=== PATIENT | male | born 1945 | race Caucasian/White ===

== ENCOUNTER 2016-05-27 15:57 | Inpatient (IN) | payer MEDICARE ==
--- NOTE | ~2016-05-27 | HP ---
Unit #: [id number] #: [id number] Patient: DOROTHY HERNANDEZ [id number] [address] [place], [place] [address] [id number] I MR#: [id number] NAME: DOROTHY HERNANDEZ. ROOM: 22595 Age: 70 Sex: M Admission Date: 05/27/2016 : 1945 Attending Physician: Isidoro Manjarrez M.D. Primary Care Physician: Selvin Sarabia Jr., M.D. HISTORY AND PHYSICAL CHIEF COMPLAINT 1. Shortness of breath. 2. Anemia. 3. Chest pain. HISTORY OF PRESENT ILLNESS Patient is a 70-year-old male with a history of coronary artery disease and renal insufficiency, who follows up with Dr. Manjarrez and Dr. Curran, who does also have hypertension and diabetes, who presents with shortness of breath, weakness, and bilateral leg swelling. He states that it is improved with taking nitroglycerin 0.4 x1. He states that this felt like when he had his myocardial infarction. He was seen and evaluated in the emergency room and his hemoglobin was 6.5. He currently has two units of packed red blood cells ordered with 80 mg of Lasix IV in between units x1 and iron studies ordered per Dr. Esteban Curran. Patient's troponin is elevated at 0.30; however, his creatinine is also elevated. He denies any chest pain at this time, denies any melena, hematochezia, hemoptysis, or hematemesis, and denies any lightheadedness or blurry vision at this time. REVIEW OF SYSTEMS A complete 10-point review of systems has been done and pertinent positives are noted. PAST MEDICAL HISTORY 1. Diabetes mellitus type 2. 2. Hypertension. 3. Chronic kidney disease managed by Dr. Esteban Curran. 4. Coronary artery disease. 5. Hyperlipidemia. 6. Benign prostatic hypertrophy. 7. Gout. PAST SURGICAL HISTORY 1. Colonoscopy which was normal in April 2005. 2. Cataract surgery. 3. Right third finger surgery. 4. Right Achilles tendon repair. SOCIAL HISTORY Patient lives with his . Denies any tobacco use, alcohol use, or illicit drug use at this time. FAMILY HISTORY Mother with COPD and his dad had lung cancer. Unit #: [id number] #: [id number] Patient: DOROTHY HERNANDEZ MEDICATIONS 1. Demadex 20 mg p.o. twice daily. 2. Lotensin 20 mg p.o. daily. 3. Cardura 80 mg p.o. every evening. 4. Zetia 10 mg at bedtime. 5. Lipitor 40 mg at bedtime. 6. Glucotrol 5 mg p.o. twice daily, 1-1/2 tablets in the a.m. and 2 tablets p.m. which is 7.5 mg in the a.m. and 10 mg at p.m. 7. Hydralazine 100 mg p.o. 3 times daily. 8. Aspirin 81 mg p.o. daily. 9. Brilinta 90 mg p.o. twice daily. 10. Isosorbide dinitrate 30 mg p.o. daily. 11. Nitroglycerin 0.4 mg sublingual q.5 minutes x3 p.r.n. 12. Calcium with vitamin D 1 tablet p.o. daily. 13. Zyloprim 100 mg p.o. twice daily. 14. Amlodipine 5 mg p.o. daily. 15. Minoxidil 2.5 mg p.o. twice daily. ALLERGIES No known drug allergies. PHYSICAL EXAMINATION GENERAL: He was comfortable and not in acute distress. VITAL SIGNS: Blood pressure was 128/55, pulse 81, respiratory rate 18, and temperature 98. Patient is saturating 95% on 2 liters of oxygen. HEENT: Pupils were equal and reactive to light and accommodation. NECK: Supple without thyromegaly. CARDIOVASCULAR: First and second heart sounds. ABDOMEN: Full. Moved with respiration. Soft. EXTREMITIES: With 2+ bilateral lower extremity edema. SKIN: Warm and dry with no rashes. LYMPHATICS: No enlarged peripheral lymphadenopathy that I could appreciate. DIAGNOSTIC STUDIES LABORATORY: Chemistries with glucose of 296, BUN and creatinine 60 and 3.1, sodium and potassium 132 and 3.9, and chloride and bicarbonate 102 and 21, respectively. BNP was 1741. Troponin was 0.30 and 0.29, respectively. CBC with WBC of 6.7, hemoglobin and hematocrit 6.8 and 28.4, and platelet count of 140,000. CARDIOLOGY: EKG showed normal sinus rhythm with low voltage QRS with incomplete left bundle branch block. ASSESSMENT 1. Symptomatic anemia. Patient is currently being transfused two units of packed red blood cells. 2. Chronic renal failure. Dr. Esteban Curran has been consulted. 3. Coronary artery disease with elevated troponins. Dr. Manjarrez has been consulted. PLAN Will check a CBC and BMP in the morning. Will put him on Accu-Cheks q.a.c. and at bedtime and low-dose sliding scale. For DVT prophylaxis, will put him on SCDs while he is in bed, and for GI prophylaxis, will put him on Protonix. Unit #: [id number] #: [id number] Patient: DOROTHY HERNANDEZ Dictated by Radha Mejia/sole TD: 05/27/2016 18:47 JOB #: [id number] HISTORY AND PHYSICAL Page 1 of 1 X Yenny Viera MD X HISTORY AND PHYSICAL
--- NOTE | ~2016-05-27 | CO ---
Unit #: [id number] #: [id number] Patient: DOROTHY HERNANDEZ [id number] [address] [place], [place] [address] [id number] I MR#: [id number] NAME: DOROTHY HERNANDEZ. ROOM: 549 Age: 70 Sex: M Admission Date: 05/27/2016 : 1945 Attending Physician: Orestes Bejarano M.D. Primary Care Physician: Selvin Sarabia Jr., M.D. Consultation Date: 05/28/2016 CONSULTATION REPORT REASON FOR CONSULTATION Coronary artery disease and CHF. HISTORY OF PRESENT ILLNESS The patient is a 70-year-old man known to Dr. Manjarrez. The patient was last seen in the office in April of 2016. The patient had a cardiac cath on June 25, 2015, which showed left main 40% stenosis distally before the bifurcate, LAD proximally 80% stenosis, reduced to 0% residual stenosis with a 3.5 x 20 mm Synergy stent postdilated to 3.6 mm, first diagonal 90% stenosis at the origin and 90% stenosis 15 mm beyond, third diagonal 90% stenosis at the origin, left circumflex no significant stenosis and RCA mid 99% stenosis with distal being normal. The patient has had a non-STEMI, coronary artery disease, hypertensive cardiomyopathy, hyperlipidemia. He is followed by Dr. Esteban Curran for chronic kidney disease stage 4. Additional past medical history includes BPH, diabetes, carotid bruit, diastolic CHF and anemia of chronic disease. The patient presented to the ER with complaints of cold sweats and increasing shortness of breath. The onset of his shortness of breath was approximately a few hours before arriving to the emergency department. He did have some complaints of lightheadedness but did not pass out or feel like he could pass out. He denied any chest pain or pressure. The patient does report that he did take a nitroglycerin at home and that it did help some of his shortness of air. The patient reports that he has been compliant with his Brilinta and aspirin for the past year. In the emergency department the patient's hemoglobin was found to be 6.8. The patient denies any hematemesis, hematochezia or hematuria. The patient was given 2 units of packed red blood cells with 80 mg of Lasix in between. The patient's ejbqj-ft-ogip troponin was 0.29 with an elevated creatinine of 3.1. His EKG was unremarkable and showed sinus rhythm. The patient was admitted for further workup. PAST MEDICAL HISTORY 1. Cardiac catheterization June 25, 2015 showed left main 40% stenosis distally before bifurcation, LAD proximally 80% stenosis, reduced to no residual stenosis by a 3.5 x 20 mm Synergy stent postdilated to 3.6 mm, first diagonal 90% stenosis at the origin and 90% stenosis 15 mm beyond, third diagonal 90% stenosis at the origin, left circumflex no significant stenosis and RCA mid 99% stenosis with distal being normal. 2. Non-STEMI. 3. Coronary artery disease. 4. Hypertensive cardiomyopathy. Unit #: [id number] #: [id number] Patient: DOROTHY HERNANDEZ 5. Hyperlipidemia. 6. Chronic kidney disease stage 4, followed by Dr. Curran. 7. Diabetes, followed by Dr. Kong. 8. BPH. 9. Carotid bruit. 10. Diastolic CHF. 11. Anemia of chronic disease. PAST SURGICAL HISTORY 1. Colonoscopy, which was normal, in April of 2005. 2. Cataract surgery. 3. Third finger surgery. 4. Right Achilles tendon repair. ALLERGIES No known allergies. HOME MEDICATIONS 1. Demadex 20 mg p.o. daily. 2. Lotensin 20 mg p.o. daily. 3. Cardura 80 mg p.o. in the evening. 4. Zetia 10 mg p.o. at bedtime. 5. Lipitor 10 mg p.o. at bedtime. 6. Glucotrol 5 mg p.o. b.i.d., 1.5 tabs in the a.m. and 2 tablets in the evening. 7. Hydralazine 100 mg p.o. t.i.d. 8. Aspirin 81 mg p.o. daily. 9. Brilinta 90 mg p.o. b.i.d. 10. Isosorbide dinitrate 30 mg p.o. daily. 11. Nitroglycerin sublingual 0.4 mg q.5 minutes x3 p.r.n. 12. Calcium with vitamin D. 13. Zyloprim 100 mg p.o. b.i.d. 14. Amlodipine 5 mg p.o. daily. 15. Minoxidil 2.5 mg p.o. b.i.d. FAMILY HISTORY The patient denies any family history of coronary artery disease. SOCIAL HISTORY The patient denies tobacco, alcohol or illicit drug abuse. The patient states that he quit drinking alcohol altogether one year ago. He is independent in his activities of daily living. 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 He does not have any pets in the home. REVIEW OF SYSTEMS A 10-point review of systems has been done and is considered, otherwise, negative unless indicated in the HPI. PHYSICAL EXAMINATION GENERAL: The patient is awake and alert and in no acute distress. VITAL SIGNS: Temperature 98.3, heart rate 90, respirations 20, blood pressure 135/54. HEENT: Head is atraumatic, normocephalic. Pupils are equal, round and reactive. Extraocular movements are intact. No drainage from ears or nares. NECK: Supple. Trachea is midline. Positive JVD. No lymphadenopathy or thyromegaly is appreciated. Unit #: [id number] #: [id number] Patient: DOROTHY HERNANDEZ CHEST: Diminished bilaterally with crackles in the bases. CARDIOVASCULAR: S1, S2. Regular rate and rhythm. No murmurs, rubs or gallops are appreciated. ABDOMEN: Abdomen is soft, nontender, nondistended. Bowel sounds are positive in all 4 quadrants. SKIN: Appears to be warm and dry and intact. EXTREMITIES: No clubbing or cyanosis. The patient has bilateral lower extremity edema. NEUROLOGIC: The patient is alert and oriented x3. He is pleasant and conversant. Cranial nerves II-XII intact. No focal deficits. DIAGNOSTIC STUDIES LABORATORY RESULTS: Iron 8, transferrin 145. BNP 1,741. Hemoglobin was 6.8 on admission and, after 2 units of packed red blood cells, was 9.6. Soaeu-ki-lmxq troponin was 0.29. White blood cells 9.6, hemoglobin 9.5, hematocrit 27.6, platelets 143. Potassium 3.5, chloride 104, CO2 18, BUN 59, creatinine 3.1, glucose 234. ASSESSMENT 1. Fluid overload, possibly multifactorial secondary to chronic kidney disease, minoxidil, anemia and possible systolic CHF. 2. Anemia secondary to chronic disease. 3. Stable angina. 4. Coronary artery disease. 5. Hypertension. 6. Hyperlipidemia. 7. Chronic kidney disease stage 4. PLAN Will check cardiac enzymes and troponin x1 now. Will check BMP, magnesium, phosphorous, lipid panel, troponin, EKG, TSH, CBC in the morning. Will do a two-D echocardiogram now. Will stop the patient's Demadex and Brilinta. Will put the patient on a 2,000 mL a day fluid restriction. Will give the patient IV Bumex 2 mg now and 2 mg IV b.i.d. Dictated by... Kirstin Bejarano A.P.R.N. for Isidoro Manjarrez M.D. AM/harry TD: 05/28/2016 14:24 JOB #: [id number] CONSULTATION REPORT Page 1 of 1 X Kirstin Bejarano E MERCHANT X CONSULTATION REPORT
--- NOTE | ~2016-05-27 | EKG ---
PATIENT: DOROTHY HERNANDEZ UNIT #: [id number] Ventricular Rate: 85 BPM Atrial Rate: 85 BPM P-R Interval: 180 ms QRS Duration: 108 ms Q-T Interval: 392 ms QTC Calculation(Bezet): 466 ms P [place]: 66 degrees Calculated R [place]: 68 degrees Calculated T [place]: -62 degrees Diagnosis Line: Normal sinus rhythm Diagnosis Line: Incomplete left bundle branch block Diagnosis Line: ST and T wave abnormality, consider lateral ischemia Diagnosis Line: Prolonged QT Diagnosis Line: Abnormal ECG Diagnosis Line: When compared with ECG of 29-MAY-2016 00:32, Diagnosis Line: Sinus rhythm has replaced Atrial fibrillation Diagnosis Line: Vent. rate has decreased BY 42 BPM Diagnosis Line: Confirmed by ESDRAS FUNG MD ([id number]) on 06/01/2016 Diagnosis Line: 10:59:57 PM INTERPRETING MD: KENTON TATUM
--- NOTE | ~2016-05-27 | EKG ---
PATIENT: DOROTHY HERNANDEZ UNIT #: [id number] Ventricular Rate: 81 BPM Atrial Rate: 81 BPM P-R Interval: 150 ms QRS Duration: 116 ms Q-T Interval: 412 ms QTC Calculation(Bezet): 478 ms P [place]: 51 degrees Calculated R [place]: -3 degrees Calculated T [place]: -50 degrees Diagnosis Line: Normal sinus rhythm Diagnosis Line: Incomplete left bundle branch block Diagnosis Line: Nonspecific T wave abnormality Diagnosis Line: Prolonged QT Diagnosis Line: Abnormal ECG Diagnosis Line: When compared with ECG of 01-JUN-2016 06:00, Diagnosis Line: Questionable change in QRS axis Diagnosis Line: T wave inversion more evident in Lateral leads Diagnosis Line: Confirmed by ESDRAS FUNG MD ([id number]) on 06/02/2016 Diagnosis Line: 10:17:20 PM INTERPRETING MD: KENTON TATUM
--- NOTE | ~2016-05-27 | EKG ---
PATIENT: DOROTHY HERNANDEZ UNIT #: [id number] Ventricular Rate: 81 BPM Atrial Rate: 81 BPM P-R Interval: 170 ms QRS Duration: 110 ms Q-T Interval: 404 ms QTC Calculation(Bezet): 469 ms P [place]: 53 degrees Calculated R [place]: 23 degrees Calculated T [place]: 94 degrees Diagnosis Line: Normal sinus rhythm Diagnosis Line: Low voltage QRS Diagnosis Line: Nonspecific ST and T wave abnormality Diagnosis Line: Prolonged QT Diagnosis Line: Abnormal ECG Diagnosis Line: When compared with ECG of 26-JUN-2015 10:28, Diagnosis Line: Vent. rate has increased BY 29 BPM Diagnosis Line: Inverted T waves have replaced nonspecific T wave Diagnosis Line: abnormality in Inferior leads Diagnosis Line: T wave inversion no longer evident in Anterior Diagnosis Line: leads Diagnosis Line: Confirmed by ESDRAS FUNG MD ([id number]) on 05/27/2016 Diagnosis Line: 10:59:11 PM INTERPRETING MD: KENTON TATUM
--- NOTE | ~2016-05-27 | CR72 ---
[facility] A Service of [facility] & [facility] RADIOLOGY TEXT RESULTS PATIENT: DOROTHY HERNANDEZ LOCATION: [place] [address] : [birth year] UNIT #: [id number] AGE: [address]: CECI BIRCH MD SEX: M ORDER DR: [id number] [facility] [address]. [place], [place] [address] [id number] I MR#: [id number] Acc #: [id number] NAME: DOROTHY HERNANDEZ. : 1945 SEX: M STUDY DATE/TIME: 05/30/2016 4:57 UNIT: [facility] ROOM: [facility] STUDY DESCRIPTION: CR Chest Single View Portable Attending Physician: Orestes Bejarano M.D. Ordering Physician: Isidoro Manjarrez M.D. Primary Care Physician: Selvin Sarabia Jr., M.D. MEDICAL IMAGING REPORT This report is preliminary unless electronic signature is present EXAM Portable chest, 05/30/2016. COMPARISON 05/27/2016 HISTORY Chest pain, shortness of breath beginning 3 days ago. FINDINGS AP portable view was obtained, showing cardiac enlargement. Lungs show development of worsening pulmonary edema and development of right-sided pleural fluid. CONCLUSION Significant increase in infiltrates, consistent with pulmonary edema and development of a right-sided pleural effusion. Dictated by... Selvin Walker M.D. THIS IS AN ELECTRONICALLY VERIFIED REPORT Selvin Walker M.D. at 06/01/2016 5:02 PM KOKO/yazmin TD: 05/30/2016 12:34 JOB #: [id number] MEDICAL IMAGING REPORT Page 1 of 1 COPY
--- NOTE | ~2016-05-27 | CR72 ---
[facility] A Service of [facility] & [facility] RADIOLOGY TEXT RESULTS PATIENT: DOROTHY HERNANDEZ LOCATION: [address] : [birth year] UNIT #: [id number] AGE: [address]: CECI BIRCH MD SEX: M ORDER DR: [id number] [facility] [address] [place], [place] [address] [id number] I MR#: [id number] Acc #: [id number] NAME: DOROTHY HERNANDEZ : 1945 SEX: M STUDY DATE/TIME: 05/30/2016 12:56 UNIT: [facility] ROOM: [facility] STUDY DESCRIPTION: CR Chest Single View Portable Attending Physician: Orestes Bejarano M.D. Ordering Physician: Ender Clayton M.D. Primary Care Physician: Selvin Sarabia Jr., M.D. MEDICAL IMAGING REPORT This report is preliminary unless electronic signature is present EXAM Single view of the chest dated 05/30/2016 at 1256 hours. COMPARISON Single view of the chest dated 05/30/2016 at 0457 hours. HISTORY Line placement, shortness of air for 3 days. FINDINGS Single view of the chest was obtained. New right IJ approach central catheter is noted with the tip in the region of the SVC. New left IJ approach PICC line catheter is noted with the tip in the region of the inferior aspect of the SVC close to the cavoatrial junction. There is stable mild to moderate cardiomegaly. Scattered bilateral alveolar and interstitial infiltrates are redemonstrated with new opacification of the right lateral CP angle and right horizontal fissure suggestive of mild pleural effusion. No obvious pneumothorax. Dictated by... Javi Robertson M.D. THIS IS AN ELECTRONICALLY VERIFIED REPORT Javi Robertson M.D. at 06/01/2016 1:49 PM CPR/tmw TD: 05/30/2016 14:47 JOB #: [id number] MEDICAL IMAGING REPORT Page 1 of 1 COPY
--- NOTE | ~2016-05-27 | CR72 ---
[facility] A Service of [facility] & [facility] RADIOLOGY TEXT RESULTS PATIENT: DOROTHY HERNANDEZ LOCATION: [place] [address] : [birth year] UNIT #: [id number] AGE: [address]: CECI GARCIA MD SEX: M ORDER DR: [id number] [facility] [address]. [place], [place] [address] [id number] I MR#: [id number] Acc #: [id number] NAME: DOROTHY HERNANDEZ : 1945 SEX: M STUDY DATE/TIME: 06/02/2016 02:50 UNIT: [facility] ROOM: [facility] STUDY DESCRIPTION: CR Chest Single View Portable Attending Physician: Ceci Garcia M.D. Ordering Physician: Reggie Yoon Primary Care Physician: Selvin Sarabia Jr., M.D. MEDICAL IMAGING REPORT This report is preliminary unless electronic signature is present EXAM Portable chest 06/02 02:50 INDICATIONS Anemia, shortness of air and chest pain for 5 days. FINDINGS AP portable chest compared with 06/01/2016. Bilateral IJ lines remain near cavoatrial junction. Cardiomegaly is stable. Infiltrates in the right inx-af-tmvpy lung and left base are largely stable. There is small right effusion. No pneumothorax. Dictated by... Jigar Wyatt Jr., M.D. THIS IS AN ELECTRONICALLY VERIFIED REPORT Jigar Wyatt Jr., M.D. at 06/02/2016 10:37 PM REJI/erlin TD: 06/02/2016 06:12 JOB #: [id number] MEDICAL IMAGING REPORT Page 1 of 1 COPY
--- NOTE | ~2016-05-27 | EKG ---
PATIENT: DOROTHY HERNANDEZ UNIT #: [id number] Ventricular Rate: 53 BPM Atrial Rate: 53 BPM P-R Interval: 188 ms QRS Duration: 110 ms Q-T Interval: 606 ms QTC Calculation(Bezet): 568 ms P [place]: 82 degrees Calculated R [place]: 46 degrees Calculated T [place]: 175 degrees Diagnosis Line: Sinus bradycardia with occasional Premature Diagnosis Line: ventricular complexes Diagnosis Line: Incomplete left bundle branch block Diagnosis Line: ST and T wave abnormality, consider anterolateral Diagnosis Line: ischemia Diagnosis Line: Prolonged QT Diagnosis Line: Abnormal ECG Diagnosis Line: Diagnosis Line: Confirmed by DAVID OLIVAREZ MD ([id number]) on Diagnosis Line: 06/07/2016 3:56:27 PM INTERPRETING MD: JASIEL
--- NOTE | ~2016-05-27 | OR ---
Unit #: [id number] #: [id number] Patient: DOROTHY HERNANDEZ [id number] [place] [id number] [facility]. [place], [place] [address] [id number] Christine MR#: [id number] NAME: DOROTHY HERNANDEZ. ROOM: [facility] Date of Procedure: 05/30/2016 Admission Date: 05/28/2016 Surgeon: Maxime Crystal M.D. : 1945 Attending Physician: Orestes Bejarano M.D. Primary Care Physician: Selvin Sarabia Jr., M.D. OPERATIVE REPORT PROCEDURE PERFORMED Placement of non-tunneled central venous catheter. INDICATIONS FOR PROCEDURE This is a 70-year-old gentleman with an active cardiopulmonary process. He requires multiple drips per Dr. Manjarrez and Dr. Curran. We were asked by the ICU to place a central venous catheter, so he can proceed with his medications. I talked to the patient about the risks and benefits of the procedure. The risks include, but are not limited to, bleeding, line infection, bladder malfunction, injury to the blood vessels, and pneumothorax requiring thoracostomy. The benefit of the procedure would be for the patient to have IV access, so he can receive his medications. The patient expressed understanding and elected to proceed. PREOPERATIVE DIAGNOSIS Need for central access. POSTOPERATIVE DIAGNOSIS Need for central access. DESCRIPTION OF TECHNIQUE After informed consent was obtained, the patient's left neck was evaluated by ultrasound for patency of his left internal jugular vein. It appeared large, dilated, incompressible. I then prepped and draped the left neck in standard fashion. Using ultrasound, I injected 1% lidocaine into the skin. I then accessed the left internal jugular vein using ultrasound with a microneedle. I then advanced a micro Glidewire, which advanced easily. I then exchanged out my microneedle for 4-Arabic micro sheath catheter. There was no pulsatile flow noted from the catheter. I then advanced a starter wire, which advanced easily. I then serially dilated the skin tract, and I then advanced 3 lumen central venous catheter over the wire, easily, with no issues. All 3 ports aspirated and flushed easily. This catheter was then sutured into the skin with 3-0 nylon. Sterile dressing was then applied. The patient tolerated the procedure well. Stat chest x-ray is pending. Dictated by... Radha Ng/jimbo Unit #: [id number] #: [id number] Patient: MARYDOROTHY TD: 05/30/2016 23:14 JOB #: [id number] OPERATIVE REPORT Page 1 of 1 X X PROCEDURE OPERATIVE NOTE
--- NOTE | ~2016-05-27 | CR72 ---
[facility] A Service of [facility] & [facility] RADIOLOGY TEXT RESULTS PATIENT: DOROTHY HERNANDEZ LOCATION: [place] [address] : [birth year] UNIT #: [id number] AGE: [address]: CECI BIRCH MD SEX: M ORDER DR: [id number] [facility] [address] [place], [place] [address] [id number] I MR#: [id number] Acc #: [id number] NAME: DOROTHY HERNANDEZ : 1945 SEX: M STUDY DATE/TIME: 05/31/2016 10:14 UNIT: [facility] ROOM: [facility] STUDY DESCRIPTION: CR Chest Single View Portable Attending Physician: Orestes Bejarano M.D. Ordering Physician: Isidoro Manjarrez M.D. Primary Care Physician: Selvin Sarabia Jr., M.D. MEDICAL IMAGING REPORT This report is preliminary unless electronic signature is present EXAM Single view of the chest dated 05/31/2016 at 1014 hours. COMPARISON Single view chest dated 05/30/2016 at 1256 hours. HISTORY Chest pain, CHF for the last 4 days. FINDINGS Single view of the chest was obtained. Stable positioning of lines. No significant interval worsening is noted in the cardiopulmonary status. There appears to be some improvement in the right-sided pleural effusion with better delineation of the right hemidiaphragm. The previously noted scattered multiple alveolar and interstitial opacities and disease throughout bilateral lungs are still present. Dictated by... Javi Robertson M.D. THIS IS AN ELECTRONICALLY VERIFIED REPORT Javi Robertson M.D. at 06/01/2016 2:12 PM CPR/tmw TD: 05/31/2016 12:32 JOB #: [id number] MEDICAL IMAGING REPORT Page 1 of 1 COPY
--- NOTE | ~2016-05-27 | CO ---
Unit #: [id number] #: [id number] Patient: DOROTHY HERNANDEZ [id number] [address] [place], [place] [address] [id number] I MR#: [id number] NAME: DOROTHY HERNANDEZ. ROOM: 566 Age: 70 Sex: M Admission Date: 05/28/2016 : 1945 Attending Physician: Roxanna Garcia M.D. Primary Care Physician: Selvin Sarabia Jr., M.D. Consultation Date: 06/02/2016 CONSULTATION REPORT DICTATED FOR Hortencia Alvarez M.D. REASON FOR CONSULTATION Tunneled dialysis catheter placement. HISTORY OF PRESENT ILLNESS He is a 70-year-old male with a history of coronary artery disease and chronic kidney disease stage 4, who currently sees Dr. Manjarrez and Dr. Curran. He presented to the emergency room on 05/27/2016 for chest pain, shortness of air, diaphoresis, weakness, and bilateral leg swelling. He recently had a myocardial infarction in 06/2015 and stated that this was similar to how he felt at that time. He was seen and evaluated in the emergency room and it was found that the hemoglobin was 6.5. He was, at that time, seen by Cardiology and found to have been undergoing an acute myocardial infarction. During the meantime, his chronic kidney disease has continued to progressively worsen, which is why has been decided to have a tunneled dialysis catheter placed at this time. PAST MEDICAL HISTORY Includes; 1. Diabetes mellitus type 2. 2. Hypertension. 3. Chronic kidney disease. 4. Coronary artery disease. 5. Hyperlipidemia. 6. Benign prostatic hypertrophy. 7. Gout. 8. Myocardial infarction in 06/2015. ALLERGIES He has no known drug allergies. HOME MEDICATIONS Minoxidil 2.5 mg p.o. b.i.d., amlodipine 5 mg p.o. daily, Zyloprim 100 mg p.o. b.i.d., Calcium with vitamin D 1 tablet p.o. daily, nitroglycerin 0.4 mg sublingual every 5 minutes x3 p.r.n., isosorbide 30 mg p.o. daily, Brilinta 90 mg p.o. b.i.d., aspirin 81 mg p.o. daily, hydralazine 100 mg p.o. t.i.d., Glucotrol 5 mg p.o. b.i.d. 1-1/2 tablets in the a.m. and 2 tablets in the p.m. which is 7.5 mg in the a.m. and 10 mg in the p.m., Lipitor 40 mg daily, Zetia 10 mg daily, Cardura Lotensin 20 mg p.o. daily, Demadex 20 mg p.o. b.i.d. Unit #: [id number] #: [id number] Patient: DOROTHY HERNANDEZ A SOCIAL HISTORY He lives at home with his . He denies smoking, alcohol, or illicit drug use. FAMILY HISTORY Mom and dad have a history of lung cancer. REVIEW OF SYSTEMS CONSTITUTIONAL: No fever, chills, or sweats. EYES: No recent visual problems. EAR, NOSE, MOUTH, AND THROAT: No ear pain, nasal congestion, or sore throat. RESPIRATORY: No shortness of breath or cough. CARDIOVASCULAR: No chest pain, palpitations, or syncope. GI: No nausea, vomiting, or diarrhea. GENITOURINARY: No hematuria. HEMATOLOGY AND LYMPHATIC: Negative for bruising, no swollen lymph glands. ENDOCRINE: No excessive thirst or excessive hunger. MUSCULOSKELETAL: No back pain, neck pain, joint pain, muscle pain, decreased range of motion. INTEGUMENTARY: No sores or nonhealing wounds. NEUROLOGIC: Alert and oriented x3. PSYCHIATRIC: No anxiety, depression, or suicidal thoughts or ideations. PHYSICAL EXAMINATION VITAL SIGNS: Temperature is 98.1, heart rate 82, blood pressure is 135/43, respirations is 20, O2 is 96% on 2 L of O2 per nasal cannula. GENERAL APPEARANCE: He is well developed, well nourished, in no acute distress. HEAD, EARS, EYES, NOSE, AND THROAT: Normocephalic, pupils equal, round, reactive to light. NECK: Supple, nontender without lymphadenopathy, masses, or thyromegaly. No carotid bruits noted. LUNGS: Clear to auscultation bilaterally. CARDIAC: Regular rate and rhythm. No murmurs. No peripheral edema, cyanosis, or pallor. LUNGS: Clear to auscultation bilaterally. ABDOMEN: Positive bowel sounds. Soft, nontender, no distention. No masses or hepatomegaly. MUSCULOSKELETAL: Moves all extremities, full range of motion. Normal muscular development. EXTREMITIES: Upper extremities; no deformity noted. No edema. Lower extremities, no deformity noted. No edema. VASCULAR: Palpable radial pulses bilaterally. Palpable femoral pulses bilaterally. Palpable pedal pulses bilaterally. INTEGUMENTARY: Warm and dry. No sores or nonhealing wounds. No hemosiderin disposition. NEUROLOGIC: Cranial nerves II through XII grossly intact. Normal strength and sensation bilaterally. PSYCHIATRIC: Oriented to person, place, and time. Demonstrates good judgment and reason. DIAGNOSTIC STUDIES LABORATORY RESULTS: BUN 70, creatinine 4.0, eGFR is 14.1, sodium 137, potassium 4.0, chloride 103, CO2 24, magnesium 2.0, phosphorus 3.3. AST 31, ALT 15, alkaline phosphatase 59. PT 11.7, INR 1.1, PTT 34.3. White blood cell count 9.6, red blood cell 2.73, hemoglobin 8.4, hematocrit 25.1, platelet count 187. Unit #: [id number] #: [id number] Patient: DOROTHY HERNANDEZ Dictated by... Poonam Flores APRN for Radha Lyons/jimbo TD: 06/03/2016 05:05 JOB #: [id number] CONSULTATION REPORT Page 1 of 1 X X CONSULTATION REPORT
--- NOTE | ~2016-05-27 | OR ---
Unit #: [id number] #: [id number] Patient: DOROTHY HERNANDEZ [id number] [address] [place], [place] [address] [id number] I MR#: [id number] NAME: DOROTHY HERNANDEZ. ROOM: 566 Date of Procedure: 06/08/2016 Admission Date: 05/28/2016 Surgeon: Elie Dumont M.D. : 1945 Attending Physician: Usman Aranda M.D. Primary Care Physician: Selvin Sraabia Jr., M.D. OPERATIVE REPORT JOB NOTE: CC: DR. CECI BIRCH PRIMARY CARE PHYSICIAN Selvin Sarabia M.D. PREOPERATIVE DIAGNOSES Anemia possibly of gastrointestinal bleed and anemia of chronic disease. PROCEDURES PERFORMED Upper gastrointestinal endoscopy. POSTOPERATIVE DIAGNOSES Completely normal examination up to third part of duodenum. No potential source of blood loss seen in the entire upper gastrointestinal tract. RECOMMENDATIONS No further evaluation is indicated. The patient can be started on healthy heart diet and can be discharged home from GI standpoint. SEDATION USED MAC. DESCRIPTION OF PROCEDURE Following detailed explanation of the potential risks and complications of an upper endoscopy, namely perforation, bleeding, and complications related to sedation, the patient was brought to GI lab and laid in the left lateral decubitus position. Lubricated tip of the Olympus video upper endoscope was passed through bite block into the proximal esophagus under direct vision. The entire esophageal mucosa was examined and appeared normal. Z-line was nicely demarcated, there being no esophagitis or hiatus hernia. The scope was then advanced into the gastric cavity and the latter was insufflated. Mucosa of the fundus, body, and antrum was examined and appeared unremarkable. Pylorus was intubated with visualization of the normal duodenal bulb and second and third part of the duodenum. Upon withdrawal and retroflexion, incisura, cardia, and greater curve examined and no additional findings noted. The scope was then withdrawn in the distal esophagus. Entire esophageal mucosa was examined all the way up to pharynx. No additional findings noted. The patient tolerated the procedure without any postprocedure complications. Dictated by... Unit #: [id number] #: [id number] Patient: DOROTHY HERNANDEZ Radha Fitzgerald/jimbo TD: 06/08/2016 23:17 JOB #: [id number] CC: Isidoro Manjarrez M.D. OPERATIVE REPORT Page 1 of 1 X Elie Dumont MD PROCEDURE OPERATIVE NOTE
--- NOTE | ~2016-05-27 | CR72 ---
[facility] A Service of [facility] & [facility] RADIOLOGY TEXT RESULTS PATIENT: DOROTHY HERNANDEZ LOCATION: [facility] [id number] : [birth year] UNIT #: [id number] AGE: [address]: Orestes Bejarano MD SEX: M ORDER DR: [id number] [facility] [address] [place], [place] [address] [id number] I MR#: [id number] Acc #: [id number] NAME: DOROTHY HERNANDEZ. : 1945 SEX: M STUDY DATE/TIME: 05/27/2016 15:38 UNIT: [facility] ROOM: 29290 STUDY DESCRIPTION: CR Chest Single View Portable Attending Physician: Isidoro Manjarrez M.D. Ordering Physician: Jigar Matthews M.D. Primary Care Physician: Selvin Sarabia Jr., M.D. MEDICAL IMAGING REPORT This report is preliminary unless electronic signature is present EXAM Portable chest 05/27/2016 INDICATIONS 70-year male with shortness of breath and chest pain today. COMPARISON STUDIES Comparison with 06/25/2015 FINDINGS There are bilateral interstitial and airspace opacities. Cardiomegaly. Calcified granuloma in the left base. The visualized osseous structures are unremarkable. IMPRESSION Cardiomegaly with bilateral interstitial and airspace opacities. Findings may reflect pulmonary edema or could be infectious/inflammatory. Dictated by... Munir Acevedo M.D. THIS IS AN ELECTRONICALLY VERIFIED REPORT Munir Acevedo M.D. at 05/28/2016 8:59 AM Li TD: 05/27/2016 18:10 JOB #: [id number] MEDICAL IMAGING REPORT Page 1 of 1 COPY
--- NOTE | ~2016-05-27 | CT57 ---
[facility] A Service of [facility] & [facility] RADIOLOGY TEXT RESULTS PATIENT: DOROTHY HERNANDEZ LOCATION: [facility] 566-01 : 44 UNIT #: [id number] AGE: [address]: CECI GARCIA MD SEX: M ORDER DR: [id number] [facility] [address] [place], [place] [address] [id number] I MR#: [id number] Acc #: [id number] NAME: DOROTHY HERNANDEZ : 1945 SEX: M STUDY DATE/TIME: 06/04/2016 20:55 UNIT: [facility] ROOM: [facility] STUDY DESCRIPTION: CT Chest Wo Cont Attending Physician: Ceci Garcia M.D. Ordering Physician: Brii Curran M.D. Primary Care Physician: Selvin Sarabia Jr., M.D. MEDICAL IMAGING REPORT This report is preliminary unless electronic signature is present EXAM CT chest without contrast HISTORY Chest pain, shortness of air since 05/27/2016, weakness COMPARISON Portable chest 05/27/2016 and 06/03/2016 FINDINGS Axial images performed through the chest without contrast. Multiplanar reconstructed images reviewed at a workstation. This CT exam was performed with one or more of the following radiation dose reduction techniques: Automatic exposure control, adjustment of mA and/or kV according to patient size, and iterative reconstruction. Examination demonstrates a large right pleural effusion and a small left pleural effusion. The right effusion layers to a depth of over 7.5 cm and the left effusion to a depth of 3 cm. There is compressive atelectasis within both lung bases. There is extensive airspace disease throughout both lungs with multiple foci of dense consolidation. Thickening in the interlobular septa is identified compatible with both alveolar and interstitial edema. Trachea and bronchi unremarkable. Cardiomegaly. No evidence of aneurysm. Coronary artery calcifications noted. No pericardial effusion. Visualized upper abdomen appears normal. Osseous structures and thoracic inlet unremarkable. Double-lumen catheter is in place from a right neck approach. IMPRESSION 1. Qexjmclu-la-[id number] right pleural effusion and small left pleural effusion with bibasilar atelectasis. 2. Extensive bilateral airspace disease and consolidation with thickening of the interlobular septa compatible with diffuse STS. [facility] A Service of [facility] & [facility] RADIOLOGY TEXT RESULTS PATIENT: DOROTHY HERNANDEZ LOCATION: [facility] 566-01 : 44 UNIT #: [id number] AGE: [address]: CECI GARCIA MD SEX: M ORDER DR: interstitial and alveolar edema. This could be on the basis of CHF as well as noncardiogenic causes. The overall edema appears increased from the initial admission study of 05/27/2016. Dictated by... Leonor Acevedo M.D. THIS IS AN ELECTRONICALLY VERIFIED REPORT Leonor Acevedo M.D. at 06/05/2016 6:36 PM Esa TD: 06/05/2016 00:59 JOB #: [id number] MEDICAL IMAGING REPORT Page 1 of 1 COPY
--- NOTE | ~2016-05-27 | CR71 ---
[facility] A Service [facility] RADIOLOGY TEXT RESULTS PATIENT: DOROTHY HERNANDEZ LOCATION: [facility] : 44 UNIT #: [id number] AGE: [address]: CECI GARCIA MD SEX: M ORDER DR: [id number] [facility] [address] [place], [place] [address] [id number] I MR#: [id number] Acc #: [id number] NAME: DOROTHY HERNANDEZ. : 1945 SEX: M STUDY DATE/TIME: 06/03/2016 8:49 UNIT: [facility] ROOM: [facility] STUDY DESCRIPTION: CR Chest Single View Attending Physician: Ceci Garcia M.D. Ordering Physician: Hortencia Alvarez M.D. Primary Care Physician: Selvin Sarabia Jr., M.D. MEDICAL IMAGING REPORT This report is preliminary unless electronic signature is present EXAM AP portable chest. DATE 06/03/2016 at 0849 HISTORY Postoperative line placement today. Venous insufficiency. COMPARISON AP portable chest, 06/02/2016 at 0250. FINDINGS Right IJ dual-lumen catheter distal tips extend to the upper right atrial level. Left IJ central line extends to the upper right atrial level. No pneumothorax is visible. Diffuse interstitial and alveolar disease changes are seen throughout both lungs, greatest in the right lower lobe in the infrahilar region, not thought to be significantly changed allowing for differences in technique. There is stable cardiac enlargement. No definite pleural effusion or pneumothorax is visible. Degenerative endplate spurring in the thoracic spine. Mild degenerative changes of both shoulders. IMPRESSION 1. Right IJ dual-lumen catheter distal tip extends the right atrial level. Left IJ central line distal tip appears unchanged extending to the upper atrial level. No visible pneumothorax. 2. Diffuse interstitial and alveolar infiltrates greatest in the right lower lobe without significant change from one day prior. 3. Stable cardiomegaly. [facility] Service [facility] RADIOLOGY TEXT RESULTS PATIENT: DOROTHY HERNANDEZ LOCATION: [facility] 5607-23 : 44 UNIT #: [id number] AGE: [address]: CECI GARCIA MD SEX: M ORDER DR: Dictated by... Jessica Babcock M.D. THIS IS AN ELECTRONICALLY VERIFIED REPORT Jessica Babcock M.D. at 06/04/2016 7:03 AM FARRUKH/juvencio TD: 06/03/2016 11:49 JOB #: [id number] MEDICAL IMAGING REPORT Page 1 of 1 COPY
--- NOTE | ~2016-05-27 | CO ---
Unit #: [id number] #: [id number] Patient: DOROTHY SCOTT [id number] [facility]. [place], [place] [address] [id number] I MR#: [id number] NAME: DOROTHY SCOTT. ROOM: 549 Age: 70 Sex: M Admission Date: 05/28/2016 : 1945 Attending Physician: Orestes Bejarano M.D. Primary Care Physician: Selvin Sarabia Jr., M.D. Consultation Date: 05/28/2016 CONSULTATION REPORT ADDITIONAL ATTENDING PHYSICIAN Yenny Viera M.D. REASON FOR CONSULTATION Severe anemia. HISTORY OF PRESENT ILLNESS Mr. Scott is a 70-year-old white gentleman, who is admitted with increasing shortness of breath along with chest pain and dependent edema. Upon admission, hemoglobin was found to be 6.8. The patient denies any history of overt GI bleed in the form of hematemesis, melena, or hematochezia. He does have history of diabetic chronic renal disease and seemingly had acute kidney injury at this time on top of chronic renal disease. His troponin is elevated on admission and the patient may have acute SD. PAST MEDICAL HISTORY Significant for type 2 diabetes, renal failure, chronic kidney disease managed by Dr. Curran, hypertension, coronary artery disease, hyperlipidemia, benign prostatic hypertrophy, and gout. PAST SURGICAL HISTORY Included a right third finger surgery, Achilles tendon repair, and cataract surgery. SOCIAL HISTORY Lives at home with his . Does not smoke or drink alcohol. FAMILY HISTORY Significant for COPD and lung cancer. MEDICATIONS At home included Demadex, Lotensin, Cardura, Zetia, Lipitor, Glucotrol, hydralazine, aspirin, Brilinta, isosorbide dinitrate, nitroglycerin, calcium, Zyloprim, amlodipine, and minoxidil. ALLERGIES No known drug allergies. REVIEW OF SYSTEMS Detailed review of organ systems does not reveal any recent weight loss. No history of fever, chills, or rigors. No history of headache, seizures, chest pain, or syncope. He does mention history of increasing shortness of breath. No cough or expectoration. No history of hemoptysis. No Unit #: [id number] #: [id number] Patient: SCOTT,DOROTHY A history of overt GI bleed in the form of hematemesis, melena, or hematochezia. No history of dysuria, hematuria, or pyuria. No history of focal seizures or extremity weakness. Rest of the review of organ systems unremarkable. PHYSICAL EXAMINATION GENERAL: Alert, oriented, appears comfortable. VITAL SIGNS: Stable with a temperature of 98.2, pulse is 99 per minute and regular, respirations 20, and blood pressure 151/88. He appears quite frail. HEENT: He has moderate pallor. There being no icterus, lymphadenopathy, or peripheral edema. CARDIOVASCULAR: Normal heart sounds. No murmurs on auscultation. LUNGS: Reveal bilateral diminished air entry and crepitations at lung bases. ABDOMEN: Soft and nontender. Liver and spleen are not palpable. Bowel sounds normal. DIAGNOSTIC STUDIES LABORATORY RESULTS: Shows a hemoglobin of 6.8 on admission, post transfer hemoglobin is 9.6. INR is 1.2. BUN and creatinine are 60 and 3.1. Cardiac enzymes are elevated. CLINICAL IMPRESSION The most likely etiology of the patient's presentation is indeed congestive heart failure along with acute myocardial infarction, coronary artery disease, acute kidney injury on top of chronic renal disease, type 2 diabetes, renal insufficiency. The drop in hemoglobin may be related to multifactorial issues including renal disease, anemia of chronic disease, and possible gastrointestinal blood loss. An upper endoscopy performed after the patient is cleared by Cardiology from standpoint view of elevated cardiac enzymes, possibility of acute myocardial infarction. The above plan discussed with the patient and his and they were reassured. Thank you for asking me to see this pleasant gentleman. I appreciate the consult. Dictated by... Radha Fitzgerald/jimbo TD: 05/28/2016 23:59 JOB #: [id number] Yenny Viera M.D. CONSULTATION REPORT Page 1 of 1 X Elie Dumont MD X CONSULTATION REPORT
--- NOTE | ~2016-05-27 | EKG ---
PATIENT: DOROTHY HERNANDEZ UNIT #: [id number] Ventricular Rate: 78 BPM Atrial Rate: 78 BPM P-R Interval: 202 ms QRS Duration: 118 ms Q-T Interval: 414 ms QTC Calculation(Bezet): 471 ms P Hershey: 67 degrees Calculated R Hershey: 17 degrees Calculated T Hershey: 73 degrees Diagnosis Line: Normal sinus rhythm Diagnosis Line: Low voltage QRS Diagnosis Line: Incomplete left bundle branch block Diagnosis Line: Nonspecific T wave abnormality Diagnosis Line: Prolonged QT Diagnosis Line: Abnormal ECG Diagnosis Line: When compared with ECG of 27-MAY-2016 14:34, Diagnosis Line: (unconfirmed) Diagnosis Line: Nonspecific T wave abnormality has replaced Diagnosis Line: inverted T waves in Inferior leads Diagnosis Line: Confirmed by ESDRAS FUNG MD ([id number]) on 05/29/2016 Diagnosis Line: 6:54:56 PM INTERPRETING MD: KENTON TATUM
--- NOTE | ~2016-05-27 | TOC ---
Unit #: [id number] #: [id number] Patient: DOROTHY HERNANDEZ [id number] [place], [place] [address] [id number] I MR#: [id number] NAME: DOROTHY HERNANDEZ. ROOM: 566 Age: 70 Sex: M Admission Date: 05/28/2016 : 1945 Attending Physician: Usman Aranda M.D. Primary Care Physician: Selvin Sarabia Jr., M.D. TRANSFER OF CARE SUMMARY DIAGNOSES 1. Endstage renal disease on hemodialysis. 2. Acute on chronic diastolic heart failure. 3. Severe anemia. 4. Non-ST elevation myocardial infarction. 5. Coronary artery disease. HOSPITAL COURSE The patient is a 70-year-old male with a history of coronary artery disease, severe insufficiency, who presented to the emergency room with shortness of breath, weakness and bilateral leg swelling. During the week of 06/01/2016 the patient required dialysis tunnelled catheter for permanent hemodialysis. The patient is moved out of the ICU, status post tunnelled catheter. The patient was on dobutamine drip for the acute on chronic diastolic heart failure. The patient showed improvement with shortness of breath and bilateral leg swelling. The patient had CT of the chest on 06/04/2016 that showed moderate to large right pleural effusion and small left pleural effusion with bibasilar atelectasis. Extensive bilateral airspace disease and consolidation with thickening of the intralobular septal compatible with diffuse interstitial and alveolar edema. This could be on the basis of congestive heart failure as well as noncardiogenic process. The patient has been weaned off of the dobutamine drip and Weeks catheter has been removed. The patient is awaiting reevaluation by GI for the endoscopy. The patient is followed by cardiology with Dr. Mcmullen for the non-ST elevation myocardial infarction with medical management and probable PCI in the future. Recommend no (1) for the chronic kidney disease. The patient is awaiting the hemodialysis placement as outpatient at (2) Hemodialysis at [facility]. The patient's care has been handed over to Dr. Aranda for followup for further management. Dictated by... AmRadha Schultz/vincenzo TD: 06/08/2016 14:33 JOB #: [id number] Unit #: [id number] #: [id number] Patient: DOROTHY HERNANDEZ [place] TRANSFER OF CARE SUMMARY Page 1 of 1 X X TRANSFER OF CARE SUMMARY
--- NOTE | ~2016-05-27 | OR ---
Unit #: [id number] #: [id number] Patient: DOROTHY HERNANDEZ [id number] [facility]. [place], [place] [address] [id number] Christine MR#: [id number] NAME: DOROTHY HERNANDEZ. ROOM: [facility] Date of Procedure: 05/30/2016 Admission Date: 05/28/2016 Surgeon: Maxime Crystal M.D. : 1945 Attending Physician: Orestes Bejarano M.D. Primary Care Physician: Selvin Sarabia Jr., M.D. OPERATIVE REPORT PROCEDURE PERFORMED Placement of temporary non-tunneled dialysis catheter. INDICATIONS FOR PROCEDURE This is a 70-year-old gentleman with chronic kidney disease, was noted to have worsening respiratory status. I am asked by Dr. Curran of Nephrology Service to place a temporary dialysis catheter emergently so that the patient can receive dialysis today. I talked to the patient about the risks, benefits of the procedure. The risks include, but are not limited to, blood vessel injury, bleeding, line malfunction, line fracture, pneumothorax requiring thoracostomy, need for further procedures. The benefit of the procedure would be for the patient to receive dialysis. The patient expressed understanding and elected to proceed. PREOPERATIVE DIAGNOSIS Acute renal injury. POSTOPERATIVE DIAGNOSIS Acute renal injury. DESCRIPTION OF TECHNIQUE After informed consent was obtained, the patient was in the ICU. I evaluated his right internal jugular vein with ultrasound, and appeared large and compressible. I prepped and draped the right neck in standard fashion and infiltrated 1% lidocaine into the skin. Then using the ultrasound, I accessed the right internal jugular vein under ultrasound guidance. I advanced the micro Glidewire, and I exchanged out my microneedle for a 4-Congolese micro sheath catheter using Seldinger technique. There was no pulsatile flow noted from the catheter. I then advanced a starter wire, which advanced easily. I then made a skin ton over the catheter site. I then serially dilated his skin tract with a 12-Congolese then 14-Congolese catheter. I then advanced a 15 cm Hartwell catheter over the wire. It advanced easily. I then removed the stylet from the catheter, and both ports flushed and aspirated easily. I then sutured the catheter in place with 3-0 nylon. Sterile dressing was then applied. Concentrated heparin was then instilled into both ports. Stat chest x-ray is pending. The patient tolerated the procedure well. Dictated byRancho Crystal M.D. Unit #: [id number] #: [id number] Patient: DOROTHY HERNANDEZ LEXIE/jimbo TD: 05/31/2016 00:52 JOB #: [id number] OPERATIVE REPORT Page 1 of 1 X X PROCEDURE OPERATIVE NOTE
--- NOTE | ~2016-05-27 | EKG ---
PATIENT: DOROTHY HERNANDEZ UNIT #: [id number] Ventricular Rate: 127 BPM Atrial Rate: 60 BPM QRS Duration: 106 ms Q-T Interval: 338 ms QTC Calculation(Bezet): 491 ms Calculated R [place]: 37 degrees Calculated T [place]: -131 degrees Diagnosis Line: Atrial fibrillation with rapid ventricular Diagnosis Line: response Diagnosis Line: Low voltage QRS Diagnosis Line: Incomplete left bundle branch block Diagnosis Line: Nonspecific T wave abnormality , probably Diagnosis Line: digitalis effect Diagnosis Line: Abnormal ECG Diagnosis Line: When compared with ECG of 27-MAY-2016 16:00, Diagnosis Line: (unconfirmed) Diagnosis Line: Atrial fibrillation has replaced Sinus rhythm Diagnosis Line: Vent. rate has increased BY 49 BPM Diagnosis Line: Confirmed by ESDRAS FUNG MD ([id number]) on 05/29/2016 Diagnosis Line: 7:18:35 PM INTERPRETING MD: KENTON TATUM
--- NOTE | ~2016-05-27 | OR ---
Unit #: [id number] #: [id number] Patient: DOROTHY HERNANDEZ [id number] [id number] [facility]. [place], [place] [address] [id number] I MR#: [id number] NAME: DOROTHY HERNANDEZ ROOM: 566 Date of Procedure: 06/03/2016 Admission Date: 05/28/2016 Surgeon: Hortencia Alvarez M.D. : 1945 Attending Physician: Roxanna Garcia M.D. Primary Care Physician: Selvin Sarabia Jr., M.D. OPERATIVE REPORT PREOPERATIVE DIAGNOSIS Renal failure, requiring dialysis. POSTOPERATIVE DIAGNOSIS Renal failure, requiring dialysis. PROCEDURES PERFORMED 1. Ultrasound-guided cannulation of right internal jugular vein. 2. Placement of right internal jugular vein 23 cm NextStep tunneled dialysis catheter with fluoroscopy. ANESTHESIA MAC. COMPLICATIONS None. ESTIMATED BLOOD LOSS 5 mL. COMPLICATIONS None. 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 He was recommended placement of a tunneled dialysis catheter as he currently has a non-tunneled catheter. He was told of the planned procedure including the associated risks, benefits, complications, and alternatives and he wishes to proceed. DESCRIPTION OF PROCEDURE The patient was taken to the operating room and placed on the operating room table in supine position. Following MAC anesthesia, the patient's bilateral neck and chest wall was prepped and draped in normal standard manner. Using ultrasound, the right internal jugular vein was identified. And 1% lidocaine was infused over the vein. With ultrasound guidance, the vein was cannulated with the access needle and a starter wire was then passed into the inferior vena cava confirmed on fluoroscopy. A stab incision was created at the wire exit site and the tract was serially dilated with the final sheath dilator being placed. A 23 cm NextStep tunneled dialysis catheter was inserted via the sheath with its tip Unit #: [id number] #: [id number] Patient: DOROTHY HERNANDEZ positioned to the SVC-atrial junction confirmed on fluoroscopy. The proposed tunnel tract was then identified and anesthetized with lidocaine. A stab incision was created in the chest wall and then the curved metal tunneler was then passed subcutaneously. The catheter was then brought through the subcutaneous tunnel and under fluoroscopy, it was positioned accordingly. The catheter was then cut to length with the Y-Adapter being applied and secured. Inflow and outflow ports were aspirated and flushed easily and then heparin locked with concentrated heparin. The catheter was secured to the chest wall with 3-0 nylon suture and the base of the right neck incision was closed with interrupted subcuticular 4-0 Monocryl suture. The patient's right IJ non-tunneled dialysis catheter retaining sutures were then cut and the catheter was then removed and direct pressure was held on the site for 5 minutes. Upon completion, all operative field was washed and then dried. Dermabond was placed at the low neck stab incision site. Dressing was then applied throughout and the procedure was terminated. The patient tolerated the procedure well and was taken to the recovery room in stable condition. All needle, sponge, and instrument counts were correct at the end of the case. Dictated by... Radha Lyons/jimbo TD: 06/03/2016 22:20 JOB #: [id number] OPERATIVE REPORT Page 1 of 1 X Hortencia Alvarez MD X PROCEDURE OPERATIVE NOTE
--- NOTE | ~2016-05-27 | DS ---
Unit #: [id number] #: [id number] Patient: DOROTHY HERNANDEZ [id number] [address] [place], [place] [address] [id number] I MR#: [id number] NAME: DOROTHY HERNANDEZ. ROOM: 566 Age: 70 Sex: M Admission Date: 05/28/2016 : 1945 Discharge Date: 06/08/2016 Attending Physician: Usman Aranda M.D. Primary Care Physician: Selvin Sarabia Jr., M.D. DISCHARGE SUMMARY ADDENDUM Kindly note, there is already a discharge summary dictated by Dr. Roxanna Garcia and this is an addendum to the discharge summary. The patient had an EGD on the 17th morning. The EGD was essentially normal. Dr. Dumont mentioned that until the third part of duodenum there is no possible source of bleed. He is doing clinically stable and he will be discharged home. He is instructed to follow with his primary care with renal and cardiology as an outpatient. DISCHARGE MEDICATIONS On the day of the discharge, his discharge medications include: 1. Zetia 10 mg daily. 2. Norvasc was stopped. 3. Metoprolol 12.5 mg p.o. twice a day. 4. Bumex 2 mg twice a day. 5. Demadex 20 mg b.i.d. It was kept on hold. 6. Lipitor 40 mg daily. 7. Hydralazine 100 mg p.o. t.i.d. was also stopped. 8. Lisinopril 2.5 mg daily. 9. Minoxidil 2.5 mg twice a day. 10. Allopurinol 100 mg twice a day. 11. Aspirin 81 mg once a day. 12. Plavix 75 mg daily. 13. Brilinta was stopped. 14. Calcium and vitamin D one capsule p.o. daily. 15. Glucotrol 2.5 mg p.o. twice a day. Hold for blood sugars less than 90. 16. Imdur 60 mg p.o. daily. 17. Nitroglycerin 0.4 mg sublingual p.r.n. for chest pain. FOLLOWUP The patient is instructed to follow with primary care in one to two weeks. Dictated by... Radha López TD: 06/26/2016 11:15 Unit #: [id number] #: [id number] Patient: MARYDOROTHY Kinza JOB #: [id number] DISCHARGE SUMMARY Page 1 of 1 X X DISCHARGE SUMMARY
--- NOTE | ~2016-05-27 | CO ---
Unit #: [id number] #: [id number] Patient: DOROTHY SCOTT [id number] [address] [place], [place] [address] [id number] I MR#: [id number] NAME: DOROTHY SCOTT. ROOM: [facility] Age: 70 Sex: M Admission Date: 05/28/2016 : 1945 Attending Physician: Orestes Bejarano M.D. Primary Care Physician: Selvin Sarabia Jr., M.D. Consultation Date: 05/28/2016 CONSULTATION REPORT REASON FOR CONSULT Renal insufficiency. Thanks for allowing us to see this patient in consultation again. Mr. Scott is a 70-year-old male with a history of chronic kidney disease stage 4 who I see in the office who has had fluctuating creatinines in the high 2's to low 3 range over the last six months, who presented to the hospital here yesterday due to worsening shortness of breath over the last two to three days and severe weakness as well as occasional swelling. He, upon presentation, was noted to have a hemoglobin that was 6.8 and a BUN and creatinine of 58 and 3.1. He was admitted, given two units of packed red blood cells. He states he is still short of breath this morning and he is scheduled to have an EGD and colonoscopy done. He denies any chest pain, any fevers or chills, just worsening shortness of breath. PAST MEDICAL HISTORY 1. Again, a history of chronic kidney disease stage 4 with creatinine in the high 2's to 3+ range intermittently. 2. He has a history of hyperuricemia in the past, on allopurinol. 3. History of hypertension, on multiple blood pressure medicines. He had a negative renal artery duplex scan in the past. 4. History of atherosclerotic coronary artery disease. 5. He has a history of BPH. 6. History of hyperlipidemia. 7. He is status post stent placement of his heart in June 2015. SOCIAL HISTORY No smoking, no alcohol. He is . ALLERGIES No known drug allergies. MEDICATIONS His medications upon presentation include: 1. Allopurinol 100 mg a day. 2. Aspirin 81 mg a day. 3. Brilinta 90 mg twice a day. 4. Calcium pill daily. 5. Cardura 4 mg a day. 6. Glipizide 5 mg a day. 7. Hydralazine 100 mg t.i.d. 8. Isosorbide 30 mg a day. Unit #: [id number] #: [id number] Patient: DOROTHY SCOTT 9. Lipitor 40 mg a day. 10. Lotensin 40 mg a day. 11. Metoprolol 50 mg twice a day. 12. Minoxidil 2.5 mg b.i.d. 13. Amlodipine 5 mg a day. 14. Demadex 40 mg in the morning, 20 mg in the evening. 15. Zetia 10 mg a day. REVIEW OF SYSTEMS As mentioned in the HPI. Denies any fevers, chills, visual problems, sinus problems, cough, hemoptysis, sore throat, difficulty swallowing. No neck pain or neck stiffness. No chest pain, chest heaviness. He is having increasing shortness of breath. No severe abdominal pain, no urinary symptoms. Occasional intermittent swelling. No recent seizures or strokes. PHYSICAL EXAMINATION GENERAL: He is alert, in mild distress with increased shortness of breath. VITAL SIGNS: Temperature 98.3, pulse 78-99, blood pressure 108-151/30-60s. HEENT: Normocephalic, atraumatic. Pupils are equal, round, reactive to light. Extraocular muscles are intact. Hearing appears to be normal. Mouth is clear. No erythema, no exudate. NECK: Supple. No adenopathy. CARDIAC: He has a regular rhythm without a rub. At this point, he does have a no S3 or S4. LUNGS: He has bilateral rales. ABDOMEN: Bowel sounds positive, nontender, soft. No masses felt. No hepato or organomegaly noted. EXTREMITIES: He has some trace lower extremity swelling. His pulses are intact in upper and lower extremities. JOINTS: No joint pain or joint swelling. SKIN: No rashes. NEURO: Appears to be intact to both motor and sensory grossly. : was placed although unsure if he had any significant increased postvoid residual. DIAGNOSTIC STUDIES LABORATORY: His laboratory data shows a sodium of 134, potassium of 4.2, chloride is 102, bicarb is 20, BUN 58, creatinine 3.1, glucose 216. Troponin was 1.21 this morning. His BNP is 1741. His INR is 1.1. His hemoglobin is 6.8, up to 9.5 now. White count 9500, platelets 151,000. IMAGING: Chest x-ray showed cardiomegaly and pulmonary edema. ASSESSMENT AND PLAN 1. Chronic kidney disease stage 4: Certainly his creatinine is up a little bit more and his true baseline is probably in the high 2's. Certainly could be related to volume versus ATN versus other. Will go ahead and just check a UA culture and sensitivity. Will go ahead and hold his JOSIAH inhibitor for now. He is fluid overloaded and I believe he needs aggressive diuresis. Will change his Bumex to 2 mg IV q.4 hours. Will cancel his endoscopies for now due to his respiratory status. Await cardiology's input. Certainly would avoid IV dye if possible for now until things improve unless it is felt emergent from the cardiac standpoint. Will check labs in the morning. Will continue to follow. Unit #: [id number] #: [id number] Patient: DOROTHY SCOTT 2. Anemia: The patient's hemoglobin is low. I don't know if it is just related to renal disease. I looked back through my records and I don't have a hemoglobin in the last six months. Will check iron storers. Agree with transfusions yesterday and will give a dose of Aranesp and will replace iron if needed. Would hold off GI workup for blood loss until patient becomes more stable. 3. Hypertension: Blood pressure is okay but he is on minoxidil and certainly agree with checking an echo of his heart to rule out pericardial effusion or tamponade due to his minoxidil and was worth with his shortness of breath. Will keep him on his minoxidil for now and wait, however, again can also contribute to congestive heart failure and if he doesn't diurese or improve will need to stop that as well. Again, will hold his JOSIAH inhibitor and, depending on his renal function, will determine what other antihypertensives to adjust. 4. Congestive heart failure with increased troponin. Thank you very much. Dictated byRancho Curran M.D. MANUEL/marshall TD: 05/29/2016 07:13 JOB #: [id number] CONSULTATION REPORT Page 1 of 1 X Javier Curran MD CONSULTATION REPORT
--- NOTE | ~2016-05-27 | CR72 ---
[facility] A Service of [facility] RADIOLOGY TEXT RESULTS PATIENT: DOROTHY HERNANDEZ LOCATION: [address] : [birth year] UNIT #: [id number] AGE: [address]: CECI GARCIA MD SEX: M ORDER DR: [id number] [facility] [address] [facility]. [place], [place] [address] [id number] I MR#: [id number] Acc #: [id number] NAME: DOROTHY HERNANDEZ : 1945 SEX: M STUDY DATE/TIME: 06/01/2016 6:16 UNIT: [facility] ROOM: [facility] STUDY DESCRIPTION: CR Chest Single View Portable Attending Physician: eCci Garcia M.D. Ordering Physician: Isidoro Manjarrez M.D. Primary Care Physician: Selvin Sarabia Jr., M.D. MEDICAL IMAGING REPORT This report is preliminary unless electronic signature is present EXAM AP portable chest Date: 06/01/2016 HISTORY Anemia, shortness breath and chest pain. Symptoms began May 28, 2016. Shortness breath, hypertension. Diabetes. Coronary artery disease. COMPARISON AP portable chest 05/31/2016 at 10:14. FINDINGS Interstitial and alveolar disease changes are seen throughout both lungs, greatest in the bilateral lower lobes. Aeration of the right lower lobe may be slightly worse compared to yesterday's study. Trace right pleural fluid is present extending to the minor fissure. Stable cardiomegaly. Left IJ central line extends into the SVC. Right IJ dual-lumen central line distal tip extends into the upper right atrial level. No visible pneumothorax. IMPRESSION 1. Diffuse interstitial and alveolar disease changes in both lungs, greatest in the bilateral lower lobes, with slight interval worsening in the right lower lobe since yesterday's study. Overall, the lungs appear significantly worse when compared to the more remote chest radiograph of 05/27/2016, as well. 2. Trace right pleural effusion. 3. Stable cardiomegaly. 4. The supporting lines appear stable in position. No visible pneumothorax. [facility] A Service of [facility] RADIOLOGY TEXT RESULTS PATIENT: DOROTHY HERNANDEZ LOCATION: [facility] CICCU3-20 : 43 UNIT #: [id number] AGE: [address]: CECI GARCIA MD SEX: M ORDER DR: Dictated by... Jessica Babcock M.D. THIS IS AN ELECTRONICALLY VERIFIED REPORT Jessica Babcock M.D. at 06/02/2016 8:33 AM FARRUKH/maurilio TD: 06/01/2016 10:50 JOB #: [id number] MEDICAL IMAGING REPORT Page 1 of 1 COPY
[2016-05-27 15:55] LABS: POC - CKMB 3.9 ng/mL (0.0-7.9); POC - TROPONIN 0.3 ng/mL (<=0.05)
[~2016-05-27 15:57] MED LIST: ACTOS PO; ADALAT CC PO; ASPIRIN EC81 M1 PO; BENAZEPRIL PO; BRILINTA90 MG PO; CARDURA PO; CARDURA8 MG PO; DEMADEX PO; GLUCOTROL PO; GLYBURIDE PO; HYDRALAZINE HCL25 MG PO; HYDRALAZINE HCL50 MG PO; IMDUR-ER30 M1 PO; LEVEMIR100 UNITS/ SUBQ; LIPITOR PO; LIPITOR40 MG PO; LOPRESSOR PO; LOTENSIN40 MG PO; METOPROLOL TAR25 MG PO; NIFEDIAC CC60 MG PO; NITROGLYGERIN0.4 MG SL; ZETIA PO
[2016-05-27 16:05] LABS: BASOPHIL% 0.6 % (0-2.5); EOSINOPHIL# 0.1 X10e3 (0-0.7); EOSINOPHIL% 1.3 % (0.0-7.0); HEMATOCRIT 20.4 % (38.0-50.0); LYMPHOCYTE# 0.3 X10e3 (1.0-3.5); LYMPHOCYTE% 4.5 % (17.0-45.0); MEAN CELL VOLUME 90.6 FL (83-96); MEAN CORPUSCULAR HEMOGLOBIN 30.3 PG (28-34); MEAN CORPUSCULAR HGB CONC 33.5 g/dL (30-36); MEAN PLATELET VOLUME 8.2 FL (6.5-11.5); MONOCYTE# 0.4 X10e3 (0-1.0); MONOCYTE% 5.7 % (3.0-12.0); NEUTROPHIL# 5.9 X10e3 (1.5-7.1); NEUTROPHIL% 87.9 % (40-75); PLATELET COUNT 140 X10e3 (140-420); RED BLOOD COUNT 2.25 X10e (3.90-5.60); RED CELL DISTRIBUTION WIDTH 14.1 % (11.0-15.5); WHITE BLOOD COUNT 6.7 X10e3 (4.0-10.5)
[2016-05-27 16:17] LABS: INR 1.1; PARTIAL THROMBOPLASTIN TIME 30.3 SECONDS (23.5-31.3); PROTHROMBIN TIME (PATIENT) 11.9 SECONDS (9.6-11.5)
[2016-05-27 16:18] LABS: DIFF IND YES; HEMOGLOBIN 6.8 gm/dL (13.0-16.0)
[2016-05-27 16:28] LABS: PLATELET ESTIMATE DECREASED (NORMAL)
[2016-05-27 16:29] LABS: ANISOCYTOSIS SL
[2016-05-27 16:39] LABS: ALBUMIN SERUM 3.7 g/dL (3.5-5.0); BILIRUBIN, DIRECT 0.1 mg/dL (0.0-0.2); BILIRUBIN,INDIRECT 0.6 mg/dL (0.0-0.9); BILIRUBIN,TOTAL 0.7 mg/dL (0.2-2.0); BUN/CREATININE RATIO 19.35; CALCIUM SERUM 8.5 mg/dL (8.4-10.2); CREATININE SERUM 3.1 mg/dL (0.6-1.4); GLOM FILT RATE Estimated 19.2 mL/min (>60); POTASSIUM 3.9 mmol/L (3.5-5.1); PROTEIN TOTAL SERUM 6.2 g/dL (6.0-8.3)
[2016-05-27] MEDS ORDERED: DEMADEX PO (17:24)
[2016-05-27] MEDS ORDERED: LOTENSIN20 MG PO (17:25)
[2016-05-27] MEDS ORDERED: CARDURA8 MG PO (17:25)
[2016-05-27] MEDS ORDERED: ASPIRIN81 MG PO (17:30)
[2016-05-27] MEDS ORDERED: HYDRALAZINE HC100 MG PO (17:30)
[2016-05-27] MEDS ORDERED: BRILINTA90 MG PO (17:31)
[2016-05-27] MEDS ORDERED: AMLODIPINE BESYL5 MG PO (17:32)
[2016-05-27] MEDS ORDERED: MINOXIDIL2.5 MG PO (17:33)
[2016-05-27 17:36] LABS: POC - CKMB 3.3 ng/mL (0.0-7.9); POC - TROPONIN 0.29 ng/mL (<=0.05)
[2016-05-28 02:24] LABS: BASOPHIL% 0.4 % (0-2.5); HEMATOCRIT 27.6 % (38.0-50.0); LYMPHOCYTE# 0.2 X10e3 (1.0-3.5); LYMPHOCYTE% 1.8 % (17.0-45.0); MEAN CELL VOLUME 90.1 FL (83-96); MEAN CORPUSCULAR HEMOGLOBIN 30.9 PG (28-34); MEAN CORPUSCULAR HGB CONC 34.3 g/dL (30-36); MEAN PLATELET VOLUME 8.2 FL (6.5-11.5); MONOCYTE# 0.4 X10e3 (0-1.0); MONOCYTE% 4.7 % (3.0-12.0); NEUTROPHIL# 8.9 X10e3 (1.5-7.1); NEUTROPHIL% 93.1 % (40-75); PLATELET COUNT 143 X10e3 (140-420); RED BLOOD COUNT 3.07 X10e (3.90-5.60); RED CELL DISTRIBUTION WIDTH 14.2 % (11.0-15.5); WHITE BLOOD COUNT 9.6 X10e3 (4.0-10.5)
[2016-05-28 02:28] LABS: HEMOGLOBIN 9.5 gm/dL (13.0-16.0)
[2016-05-28 02:47] LABS: BUN/CREATININE RATIO 19.03; CREATININE SERUM 3.1 mg/dL (0.6-1.4); GLOM FILT RATE Estimated 19.2 mL/min (>60); POTASSIUM 3.8 mmol/L (3.5-5.1)
[2016-05-28 03:02] LABS: DIFF IND NO
[2016-05-28 09:38] LABS: HEMATOCRIT 28.2 % (38.0-50.0); HEMOGLOBIN 9.6 gm/dL (13.0-16.0); MEAN CELL VOLUME 90.4 FL (83-96); MEAN CORPUSCULAR HEMOGLOBIN 30.7 PG (28-34); MEAN PLATELET VOLUME 8.7 FL (6.5-11.5); RED BLOOD COUNT 3.12 X10e (3.90-5.60); RED CELL DISTRIBUTION WIDTH 14.1 % (11.0-15.5); WHITE BLOOD COUNT 9.5 X10e3 (4.0-10.5)
[2016-05-28 09:50] LABS: INR 1.1; PROTHROMBIN TIME (PATIENT) 11.5 SECONDS (9.6-11.5)
[2016-05-28 09:58] LABS: BUN/CREATININE RATIO 18.7; CREATININE SERUM 3.1 mg/dL (0.6-1.4); GLOM FILT RATE Estimated 19.2 mL/min (>60); POTASSIUM 4.2 mmol/L (3.5-5.1)
[2016-05-28 10:23] LABS: %MB 8.2 % (0.0-4.0); MB 14.5 ng/ml
[2016-05-28 11:39] LABS: CHOLESTEROL 83 mg/dL (0-200); HDL CHOLESTEROL 44 mg/dL (29-75); LDL CHOLESTEROL 31 mg/dL (-130); LDL/HDL RATIO 1 RATIO (0-4); TRIGLYCERIDES 42 mg/dL (10-160)
[2016-05-28 20:43] LABS: URINE APPEARANCE CLEAR; URINE BILIRUBIN NEG (NEG); URINE BLOOD 1+ (NEG); URINE COLOR YELLOW; URINE GLUCOSE NEG (NEG); URINE KETONE NEG (NEG); URINE LEUKOCYTE ESTERASE TRACE (NEG); URINE NITRATE NEG (NEG); URINE PROTEIN 1+ (NEG); URINE UROBILINOGEN 0.2 MG/DL (NEG)
[2016-05-28 20:45] LABS: URBCS1 AUWI 25-50 /[HPF] (0-2); URINE BACTERIA AUWI NEG (NEGATIVE); URINE SQUAMOUS EPITHELIAL CELL OCC /[HPF]
[2016-05-29 08:01] LABS: HEMATOCRIT 28.2 % (38.0-50.0); HEMOGLOBIN 9.6 gm/dL (13.0-16.0); MEAN CELL VOLUME 90.5 FL (83-96); MEAN CORPUSCULAR HEMOGLOBIN 30.8 PG (28-34); MEAN PLATELET VOLUME 8.4 FL (6.5-11.5); RED BLOOD COUNT 3.12 X10e (3.90-5.60); RED CELL DISTRIBUTION WIDTH 14.2 % (11.0-15.5); WHITE BLOOD COUNT 9.4 X10e3 (4.0-10.5)
[2016-05-29 08:38] LABS: ALBUMIN SERUM 3.3 g/dL (3.5-5.0); BILIRUBIN,TOTAL 0.9 mg/dL (0.2-2.0); BUN/CREATININE RATIO 18.18; CALCIUM SERUM 8.8 mg/dL (8.4-10.2); CREATININE SERUM 3.3 mg/dL (0.6-1.4); GLOM FILT RATE Estimated 17.8 mL/min (>60); MAGNESIUM 2.1 mg/dL (1.6-3.0); PROTEIN TOTAL SERUM 5.5 g/dL (6.0-8.3)
[2016-05-30 05:11] LABS: HEMATOCRIT 27.9 % (38.0-50.0); HEMOGLOBIN 9.3 gm/dL (13.0-16.0); MEAN CELL VOLUME 91.6 FL (83-96); MEAN CORPUSCULAR HEMOGLOBIN 30.6 PG (28-34); MEAN CORPUSCULAR HGB CONC 33.5 g/dL (30-36); MEAN PLATELET VOLUME 8.7 FL (6.5-11.5); RED BLOOD COUNT 3.05 X10e (3.90-5.60); RED CELL DISTRIBUTION WIDTH 14.3 % (11.0-15.5); WHITE BLOOD COUNT 7.5 X10e3 (4.0-10.5)
[2016-05-30 06:24] LABS: BUN/CREATININE RATIO 21.38; CALCIUM SERUM 8.8 mg/dL (8.4-10.2); CREATININE SERUM 3.6 mg/dL (0.6-1.4); POTASSIUM 3.9 mmol/L (3.5-5.1)
[2016-05-31 05:58] LABS: BASOPHIL% 0.2 % (0-2.5); EOSINOPHIL% 0.1 % (0.0-7.0); HEMATOCRIT 25.9 % (38.0-50.0); HEMOGLOBIN 8.7 gm/dL (13.0-16.0); LYMPHOCYTE# 0.5 X10e3 (1.0-3.5); MEAN CORPUSCULAR HEMOGLOBIN 30.5 PG (28-34); MEAN CORPUSCULAR HGB CONC 33.6 g/dL (30-36); MEAN PLATELET VOLUME 8.1 FL (6.5-11.5); MONOCYTE# 0.6 X10e3 (0-1.0); MONOCYTE% 5.6 % (3.0-12.0); NEUTROPHIL% 89.1 % (40-75); PLATELET COUNT 166 X10e3 (140-420); RED BLOOD COUNT 2.85 X10e (3.90-5.60); RED CELL DISTRIBUTION WIDTH 13.9 % (11.0-15.5); WHITE BLOOD COUNT 10.1 X10e3 (4.0-10.5)
[2016-05-31 05:59] LABS: DIFF IND NO
[2016-05-31 07:10] LABS: BUN/CREATININE RATIO 15.21; CALCIUM SERUM 8.1 mg/dL (8.4-10.2); CREATININE SERUM 2.3 mg/dL (0.6-1.4); GLOM FILT RATE Estimated 27.5 mL/min (>60); MAGNESIUM 1.9 mg/dL (1.6-3.0); PHOSPHOROUS 3.3 mg/dL (2.5-4.6); POTASSIUM 3.9 mmol/L (3.5-5.1)
[2016-06-01 04:54] LABS: BASOPHIL% 0.3 % (0-2.5); DIFF IND NO; EOSINOPHIL# 0.1 X10e3 (0-0.7); EOSINOPHIL% 1.1 % (0.0-7.0); HEMATOCRIT 25.1 % (38.0-50.0); HEMOGLOBIN 8.4 gm/dL (13.0-16.0); LYMPHOCYTE# 0.7 X10e3 (1.0-3.5); LYMPHOCYTE% 6.4 % (17.0-45.0); MEAN CELL VOLUME 92.3 FL (83-96); MEAN CORPUSCULAR HEMOGLOBIN 30.8 PG (28-34); MEAN CORPUSCULAR HGB CONC 33.4 g/dL (30-36); MEAN PLATELET VOLUME 8.5 FL (6.5-11.5); MONOCYTE# 0.7 X10e3 (0-1.0); MONOCYTE% 7.1 % (3.0-12.0); NEUTROPHIL# 8.8 X10e3 (1.5-7.1); NEUTROPHIL% 85.1 % (40-75); PLATELET COUNT 180 X10e3 (140-420); RED BLOOD COUNT 2.72 X10e (3.90-5.60); RED CELL DISTRIBUTION WIDTH 13.8 % (11.0-15.5); WHITE BLOOD COUNT 10.4 X10e3 (4.0-10.5)
[2016-06-01 05:18] LABS: BUN/CREATININE RATIO 15.55; CALCIUM SERUM 8.2 mg/dL (8.4-10.2); CREATININE SERUM 3.6 mg/dL (0.6-1.4); MAGNESIUM 2.1 mg/dL (1.6-3.0); POTASSIUM 3.9 mmol/L (3.5-5.1)
[2016-06-02 00:29] LABS: COMPLEMENT C3 78 mg/dL (90-180); COMPLEMENT C4 19 mg/dL (16-47)
[2016-06-02 05:26] LABS: BASOPHIL% 0.3 % (0-2.5); EOSINOPHIL# 0.4 X10e3 (0-0.7); EOSINOPHIL% 4.2 % (0.0-7.0); HEMATOCRIT 25.1 % (38.0-50.0); HEMOGLOBIN 8.4 gm/dL (13.0-16.0); LYMPHOCYTE# 0.6 X10e3 (1.0-3.5); LYMPHOCYTE% 6.1 % (17.0-45.0); MEAN CORPUSCULAR HEMOGLOBIN 30.8 PG (28-34); MEAN CORPUSCULAR HGB CONC 33.4 g/dL (30-36); MEAN PLATELET VOLUME 7.9 FL (6.5-11.5); MONOCYTE# 0.6 X10e3 (0-1.0); MONOCYTE% 6.6 % (3.0-12.0); NEUTROPHIL% 82.8 % (40-75); PLATELET COUNT 187 X10e3 (140-420); RED BLOOD COUNT 2.73 X10e (3.90-5.60); RED CELL DISTRIBUTION WIDTH 13.8 % (11.0-15.5); WHITE BLOOD COUNT 9.6 X10e3 (4.0-10.5)
[2016-06-02 05:33] LABS: DIFF IND NO
[2016-06-02 07:02] LABS: BUN/CREATININE RATIO 17.5; CALCIUM SERUM 8.1 mg/dL (8.4-10.2); GLOM FILT RATE Estimated 14.1 mL/min (>60)
[2016-06-02 13:15] LABS: INR 1.1; PARTIAL THROMBOPLASTIN TIME 34.3 SECONDS (23.5-31.3); PROTHROMBIN TIME (PATIENT) 11.7 SECONDS (9.6-11.5)
[2016-06-02 21:24] LABS: ANA SCREEN Negative (Negative); MYELOPEROXIDASE AB (PNL) <1.0 AI (<1.0); PROTEINASE-3 AB (PNL) <1.0 AI (<1.0)
[2016-06-03 05:40] LABS: BASOPHIL% 0.4 % (0-2.5); EOSINOPHIL# 0.2 X10e3 (0-0.7); EOSINOPHIL% 2.7 % (0.0-7.0); HEMOGLOBIN 8.1 gm/dL (13.0-16.0); LYMPHOCYTE# 0.5 X10e3 (1.0-3.5); LYMPHOCYTE% 6.6 % (17.0-45.0); MEAN CELL VOLUME 90.8 FL (83-96); MEAN CORPUSCULAR HEMOGLOBIN 30.6 PG (28-34); MEAN CORPUSCULAR HGB CONC 33.7 g/dL (30-36); MEAN PLATELET VOLUME 7.7 FL (6.5-11.5); MONOCYTE# 0.7 X10e3 (0-1.0); MONOCYTE% 9.1 % (3.0-12.0); NEUTROPHIL# 6.7 X10e3 (1.5-7.1); NEUTROPHIL% 81.2 % (40-75); PLATELET COUNT 198 X10e3 (140-420); RED BLOOD COUNT 2.64 X10e (3.90-5.60); RED CELL DISTRIBUTION WIDTH 13.6 % (11.0-15.5); WHITE BLOOD COUNT 8.2 X10e3 (4.0-10.5)
[2016-06-03 05:55] LABS: DIFF IND NO
[2016-06-03 05:56] LABS: INR 1.2; PROTHROMBIN TIME (PATIENT) 12.4 SECONDS (9.6-11.5)
[2016-06-03 06:29] LABS: BUN/CREATININE RATIO 14.09; CREATININE SERUM 2.2 mg/dL (0.6-1.4); GLOM FILT RATE Estimated 29.1 mL/min (>60); POTASSIUM 3.8 mmol/L (3.5-5.1)
[2016-06-04 08:37] LABS: BASOPHIL% 0.3 % (0-2.5); EOSINOPHIL% 0.4 % (0.0-7.0); HEMATOCRIT 26.4 % (38.0-50.0); HEMOGLOBIN 8.9 gm/dL (13.0-16.0); LYMPHOCYTE# 0.3 X10e3 (1.0-3.5); LYMPHOCYTE% 3.3 % (17.0-45.0); MEAN CORPUSCULAR HEMOGLOBIN 30.8 PG (28-34); MEAN CORPUSCULAR HGB CONC 33.8 g/dL (30-36); MEAN PLATELET VOLUME 7.7 FL (6.5-11.5); MONOCYTE# 0.6 X10e3 (0-1.0); MONOCYTE% 6.8 % (3.0-12.0); NEUTROPHIL# 8.3 X10e3 (1.5-7.1); NEUTROPHIL% 89.2 % (40-75); PLATELET COUNT 200 X10e3 (140-420); RED CELL DISTRIBUTION WIDTH 13.9 % (11.0-15.5); WHITE BLOOD COUNT 9.3 X10e3 (4.0-10.5)
[2016-06-04 08:47] LABS: DIFF IND NO
[2016-06-04 09:26] LABS: BUN/CREATININE RATIO 15.55; CALCIUM SERUM 8.3 mg/dL (8.4-10.2); CREATININE SERUM 2.7 mg/dL (0.6-1.4); GLOM FILT RATE Estimated 22.7 mL/min (>60); PHOSPHOROUS 2.6 mg/dL (2.5-4.6); POTASSIUM 3.3 mmol/L (3.5-5.1)
[2016-06-05 07:28] LABS: HEMATOCRIT 25.4 % (38.0-50.0); HEMOGLOBIN 8.5 gm/dL (13.0-16.0); MEAN CELL VOLUME 91.4 FL (83-96); MEAN CORPUSCULAR HEMOGLOBIN 30.5 PG (28-34); MEAN CORPUSCULAR HGB CONC 33.4 g/dL (30-36); RED BLOOD COUNT 2.78 X10e (3.90-5.60); RED CELL DISTRIBUTION WIDTH 14.4 % (11.0-15.5); WHITE BLOOD COUNT 9.8 X10e3 (4.0-10.5)
[2016-06-05 08:17] LABS: BUN/CREATININE RATIO 13.5; CALCIUM SERUM 8.1 mg/dL (8.4-10.2); GLOM FILT RATE Estimated 32.6 mL/min (>60); POTASSIUM 3.8 mmol/L (3.5-5.1)
[2016-06-06 05:38] LABS: HEMATOCRIT 23.8 % (38.0-50.0); MEAN CELL VOLUME 91.2 FL (83-96); MEAN CORPUSCULAR HEMOGLOBIN 30.4 PG (28-34); MEAN CORPUSCULAR HGB CONC 33.4 g/dL (30-36); MEAN PLATELET VOLUME 7.8 FL (6.5-11.5); RED BLOOD COUNT 2.61 X10e (3.90-5.60); WHITE BLOOD COUNT 8.6 X10e3 (4.0-10.5)
[2016-06-06 06:30] LABS: BUN/CREATININE RATIO 15.35; CALCIUM SERUM 8.5 mg/dL (8.4-10.2); CREATININE SERUM 2.8 mg/dL (0.6-1.4); GLOM FILT RATE Estimated 21.7 mL/min (>60); PHOSPHOROUS 2.8 mg/dL (2.5-4.6); POTASSIUM 3.8 mmol/L (3.5-5.1)
[2016-06-07 07:55] LABS: HEP B SURFACE AG Nonreactive (Nonreactive); HEPATITIS B SURFACE ANTIBODY <5 mIU/mL (>=10)
[2016-06-07 09:22] LABS: HEMATOCRIT 24.3 % (38.0-50.0); MEAN CELL VOLUME 91.9 FL (83-96); MEAN CORPUSCULAR HEMOGLOBIN 30.4 PG (28-34); MEAN CORPUSCULAR HGB CONC 33.1 g/dL (30-36); MEAN PLATELET VOLUME 7.4 FL (6.5-11.5); RED BLOOD COUNT 2.64 X10e (3.90-5.60); RED CELL DISTRIBUTION WIDTH 13.9 % (11.0-15.5); WHITE BLOOD COUNT 8.8 X10e3 (4.0-10.5)
[2016-06-07 09:54] LABS: BUN/CREATININE RATIO 12.33; CALCIUM SERUM 8.4 mg/dL (8.4-10.2)
[2016-06-08 06:12] LABS: HEMATOCRIT 23.7 % (38.0-50.0); MEAN CELL VOLUME 91.3 FL (83-96); MEAN CORPUSCULAR HEMOGLOBIN 30.9 PG (28-34); MEAN CORPUSCULAR HGB CONC 33.9 g/dL (30-36); MEAN PLATELET VOLUME 7.7 FL (6.5-11.5); RED BLOOD COUNT 2.59 X10e (3.90-5.60); RED CELL DISTRIBUTION WIDTH 13.7 % (11.0-15.5); WHITE BLOOD COUNT 8.6 X10e3 (4.0-10.5)
[2016-06-08 07:05] LABS: BUN/CREATININE RATIO 14.05; CALCIUM SERUM 8.3 mg/dL (8.4-10.2); CREATININE SERUM 3.7 mg/dL (0.6-1.4); GLOM FILT RATE Estimated 15.5 mL/min (>60); POTASSIUM 3.9 mmol/L (3.5-5.1)
[2016-06-08] MEDS ORDERED: CALCIUM + D SO1 EACH PO (17:57)
[2016-06-08] MEDS ORDERED: METOPROLOL SUCC25 MG PO (18:03)
[2016-11-06] MEDS ORDERED: BUMETANIDE2 M1 PO (14:51)
== END 2016-06-08 20:00 | disposition home or self-care (01) | DRG 280 ==
LOC: CED 15:57 → CEDOF 17:15 → C5B 05-28 10:35 → CICCU3 05-30 11:08 → C5C 06-04 01:03
PROVIDERS: Emergency Medicine; Family Medicine; Internal Medicine; Internal Medicine Cardiovascular Disease; Internal Medicine Gastroenterology; Internal Medicine Nephrology; Nurse Practitioner; Surgery Vascular Surgery
PROC: 30233N1 Transfusion of Nonautologous Red Blood Cells into Peripheral Vein, Percutaneous Approach (ICD-10-PCS; 2016-05-27)
PROC: B24BYZZ Ultrasonography of Heart with Aorta using Other Contrast (ICD-10-PCS; principal; 2016-05-28)
PROC: 02HV33Z Insertion of Infusion Device into Superior Vena Cava, Percutaneous Approach (ICD-10-PCS; 2016-05-30)
PROC: B548ZZA Ultrasonography of Superior Vena Cava, Guidance (ICD-10-PCS; 2016-05-30)
PROC: 5A1D60Z (ICD-10-PCS; 2016-05-30)
PROC: 05HM33Z Insertion of Infusion Device into Right Internal Jugular Vein, Percutaneous Approach (ICD-10-PCS; 2016-05-30)
PROC: B543ZZA Ultrasonography of Right Jugular Veins, Guidance (ICD-10-PCS; 2016-05-30)
PROC: 06H033Z Insertion of Infusion Device into Inferior Vena Cava, Percutaneous Approach (ICD-10-PCS; 2016-06-03)
PROC: B549ZZA Ultrasonography of Inferior Vena Cava, Guidance (ICD-10-PCS; 2016-06-03)
PROC: 0DJ08ZZ Inspection of Upper Intestinal Tract, Via Natural or Artificial Opening Endoscopic (ICD-10-PCS; 2016-06-08)
DX: I21.4 Non-ST elevation (NSTEMI) myocardial infarction (principal); N18.6 End stage renal disease; J96.01 Acute respiratory failure with hypoxia; I50.43 Acute on chronic combined systolic (congestive) and diastolic (congestive) heart failure; N18.4 Chronic kidney disease, stage 4 (severe); N17.9 Acute kidney failure, unspecified; E11.22 Type 2 diabetes mellitus with diabetic chronic kidney disease; I07.1 Rheumatic tricuspid insufficiency; I13.2 Hypertensive heart and chronic kidney disease with heart failure and with stage 5 chronic kidney disease, or end stage renal disease; E87.70 Fluid overload, unspecified; I12.9 Hypertensive chronic kidney disease with stage 1 through stage 4 chronic kidney disease, or unspecified chronic kidney disease; D63.1 Anemia in chronic kidney disease; E78.5 Hyperlipidemia, unspecified; I25.10 Atherosclerotic heart disease of native coronary artery without angina pectoris; N40.0 Benign prostatic hyperplasia without lower urinary tract symptoms; M10.9 Gout, unspecified; Z85.118 Personal history of other malignant neoplasm of bronchus and lung; I34.0 Nonrheumatic mitral (valve) insufficiency; I48.0 Paroxysmal atrial fibrillation
CPT/HCPCS: 36415; 71010; 71250; 76000; 77001; 80048; 80053; 80061; 80076; 81003; 82550; 82553; 82728; 82947; 83520; 83540; 83550; 83735; 83880; 84100; 84443; 84466; 84484; 85025; 85027; 85610; 85730; 86021; 86038; 86039; 86160; 86334; 86704; 86705; 86706; 86850; 86900; 86901; 86923; 87086; 87340; 93005; 93306; 94640; 94760; 97110; 97116; 97162; 97530; 99285; C1752; C9113; G8978-GP; G8979-GP; J0282; J0690; J0885; J1250; J1642; J1644; J1650; J1815; J1940; J2405; J2916; P9016; Q4081

== ENCOUNTER → 2016-07-01 | Outpatient (CLI) | payer MEDICARE ==
[~2016-07-01] MED LIST changes: +AMIODARONE PO; +AMLODIPINE BESYL5 MG PO; +ASPIRIN81 M2 PO; +ASPIRIN81 MG PO; +BUMETANIDE2 M1 PO; +BUMEX2 MG PO; +CALCIUM + D SO1 EACH PO; +CARDURA4 M1 PO; +CLOPIDOGREL75 MG PO; +DOCUSATE SODIU100 MG PO; +HYDRALAZINE HC100 MG PO; +HYDROCODON-ACE1 EAC7 PO; +ISORDIL PO; +LOTENSIN20 MG PO; +METOPROLOL SUCC25 MG PO; +MINOXIDIL2.5 MG PO; +NITROGLYCERIN0.4 MG SL; +TOPROL XL PO; +ZESTRIL2.5 M1 PO; +ZYLOPRIM100 MG PO
--- NOTE | ~2016-07-01 | CR63 ---
[facility] A Service of [facility] RADIOLOGY TEXT RESULTS PATIENT: DOROTHY HERNANDEZ LOCATION: [facility] : 43 UNIT #: [id number] AGE: [address]: Hortencia Alvarez MD SEX: M ORDER DR: [id number] [facility] [address] [place], [place] [address] [id number] O MR#: [id number] Acc #: [id number] NAME: DOROTHY HERNANDEZ. : 1945 SEX: M STUDY DATE/TIME: 07/01/2016 11:03 UNIT: [facility] ROOM: STUDY DESCRIPTION: CR Chest 2 View Attending Physician: Hortencia Alvarez M.D. Referring Physician: Hortencia Alvarez M.D. Ordering Physician: Hrotencia Alvarez M.D. Primary Care Physician: Selvin Sarabia Jr., M.D. MEDICAL IMAGING REPORT This report is preliminary unless electronic signature is present EXAM Portable chest 07/01/2016 HISTORY Shortness of breath on exertion today. Chronic kidney disease. End stage renal disease. Preop vascular access for dialysis. Benign essential hypertension. FINDINGS There is mild cardiac enlargement. 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 Right internal jugular central line tip is in the right atrium. There is no pneumothorax. Small left pleural effusion with atelectatic changes at the lung bases. The upper lungs are clear. No pneumothorax. IMPRESSION 1. Mild cardiac enlargement. Incidental note is made of a right sided aortic arch. 2. Right internal jugular central line tip is in the right atrium. There is no pneumothorax. 3. Small left pleural effusion. Dictated by... Marquez Muller M.D. THIS IS AN ELECTRONICALLY VERIFIED REPORT Marquez Muller M.D. at 07/02/2016 7:47 AM EDWIN/molly TD: 07/01/2016 16:34 JOB #: [id number] MEDICAL IMAGING REPORT Page 1 of 1 COPY
== END | disposition home or self-care (01) ==
LOC: CLAB 10:25 → CRAD 10:25
DX: N18.6 End stage renal disease (principal); I10 Essential (primary) hypertension; J90 Pleural effusion, not elsewhere classified; I51.7 Cardiomegaly
CPT/HCPCS: 36415; 71020; 85652

== ENCOUNTER → 2016-07-03 | Outpatient (CLI) | payer MEDICARE ==
--- NOTE | ~2016-07-03 | US146 ---
[facility] A Service of [facility] RADIOLOGY TEXT RESULTS PATIENT: DOROTHY HERNANDEZ LOCATION: [facility] : 43 UNIT #: [id number] AGE: [address]: Hortencia Alvarez MD SEX: M ORDER DR: [id number] [facility] [address] [place], [place] [address] [id number] O MR#: [id number] Acc #: [id number] NAME: DOROTHY HERNANDEZ : 1945 SEX: M STUDY DATE/TIME: 07/03/2016 9:12 UNIT: [facility] ROOM: STUDY DESCRIPTION: Vein Map Hemodial Access Attending Physician: Hortencia Alvarez M.D. Referring Physician: Hortencia Alvarez M.D. Ordering Physician: Hortencia Alvarez M.D. Primary Care Physician: Selvin Sarabia Jr., M.D. MEDICAL IMAGING REPORT This report is preliminary unless electronic signature is present EXAM Bilateral upper extremity venous mapping date of exam 07/03/2016 HISTORY Renal failure. FINDINGS The right and left basilic and cephalic veins were evaluated and noted to be fully compressible and patent without evidence of intraluminal debris or thrombosis. The right cephalic vein is 1 mm in the proximal arm, 1 mm in mid arm, and 1 mm at the distal arm. It is too small throughout the forearm. The right basilic vein is 5 mm proximal arm, 4 mm mid arm, 5 mm distal arm, 6 mm at the elbow, 5 mm at the proximal mid forearm and 4 mm at the distal forearm. The left cephalic vein is 2 mm from the proximal arm to the elbow and 1 mm in the proximal forearm and too small to be measured in the mid and distal forearm. The left basilic vein is 6 mm in the proximal arm, 5 mm at the mid and distal arm, 6 mm at the elbow, 5 mm in the proximal mid forearm, and 5 mm at the distal forearm. IMPRESSION 1. No evidence of either right or left upper extremity superficial vein thrombosis. 2. The right and left cephalic veins are not adequate for use as a hemodialysis access. 3. The right and left basilic veins are adequate for use as a hemodialysis access in the proximal arm to the distal forearm. Dictated by... Hortencia Alvarez M.D. [facility] Service of [facility] RADIOLOGY TEXT RESULTS PATIENT: DOROTHY HERNANDEZ LOCATION: [facility] : 43 UNIT #: [id number] AGE: [address]: Hortencia Alvarez MD SEX: M ORDER DR: THIS IS AN ELECTRONICALLY VERIFIED REPORT Hortencia Alvarez M.D. at 07/08/2016 7:11 AM MRELE/rey TD: 07/04/2016 23:26 JOB #: [id number] MEDICAL IMAGING REPORT Page 1 of 1 COPY
== END | disposition home or self-care (01) ==
LOC: CNIV 08:48
DX: Z01.818 Encounter for other preprocedural examination (principal); N18.6 End stage renal disease
CPT/HCPCS: G0365

== ENCOUNTER → 2016-07-10 | Day surgery (SDC) | payer MEDICARE ==
[2016-07-10 08:00] LABS: BASOPHIL# 0.1 X10e3 (0-0.3); EOSINOPHIL# 0.3 X10e3 (0-0.7); EOSINOPHIL% 3.7 % (0.0-7.0); HEMATOCRIT 24.7 % (38.0-50.0); HEMOGLOBIN 8.2 gm/dL (13.0-16.0); LYMPHOCYTE# 1.8 X10e3 (1.0-3.5); LYMPHOCYTE% 26.3 % (17.0-45.0); MEAN CELL VOLUME 88.1 FL (83-96); MEAN CORPUSCULAR HEMOGLOBIN 29.1 PG (28-34); MEAN CORPUSCULAR HGB CONC 33.1 g/dL (30-36); MEAN PLATELET VOLUME 7.4 FL (6.5-11.5); MONOCYTE# 0.5 X10e3 (0-1.0); MONOCYTE% 7.5 % (3.0-12.0); NEUTROPHIL# 4.2 X10e3 (1.5-7.1); NEUTROPHIL% 61.5 % (40-75); PLATELET COUNT 205 X10e3 (140-420); WHITE BLOOD COUNT 6.9 X10e3 (4.0-10.5)
[2016-07-10 08:01] LABS: DIFF IND NO
[2016-07-10 08:25] LABS: BUN/CREATININE RATIO 9.37; CALCIUM SERUM 8.2 mg/dL (8.4-10.2); CREATININE SERUM 1.6 mg/dL (0.6-1.4); GLOM FILT RATE Estimated 42.7 mL/min (>60); POTASSIUM 3.6 mmol/L (3.5-5.1)
== END | disposition home or self-care (01) ==
LOC: CSUR 07-08 12:30
PROVIDERS: Surgery Vascular Surgery
DX: N18.6 End stage renal disease (principal); E11.9 Type 2 diabetes mellitus without complications; Z53.8 Procedure and treatment not carried out for other reasons
CPT/HCPCS: 80048; 82947; 85025; J1644; J2720

== ENCOUNTER 2016-07-27 07:54 | Inpatient (IN) | payer MEDICARE ==
--- NOTE | ~2016-07-27 | EKG ---
PATIENT: DOROTHY HERNANDEZ UNIT #: [id number] Ventricular Rate: 51 BPM Atrial Rate: 51 BPM P-R Interval: 188 ms QRS Duration: 110 ms Q-T Interval: 566 ms QTC Calculation(Bezet): 521 ms P [place]: 84 degrees Calculated R [place]: 95 degrees Calculated T [place]: 63 degrees Diagnosis Line: Sinus bradycardia Diagnosis Line: Rightward axis Diagnosis Line: Non-specific intra-ventricular conduction delay Diagnosis Line: ST and T wave abnormality, consider lateral ischemia Diagnosis Line: Prolonged QT Diagnosis Line: Abnormal ECG Diagnosis Line: When compared with ECG of 07-JUN-2016 07:27, Diagnosis Line: Premature ventricular complexes are no longer Diagnosis Line: Present Diagnosis Line: Nonspecific T wave abnormality, improved in Diagnosis Line: Inferior leads Diagnosis Line: T wave inversion no longer evident in Anterior Diagnosis Line: leads Diagnosis Line: QT has shortened Diagnosis Line: Confirmed by ELMIRA JANE MD ([id number]) on Diagnosis Line: 07/27/2016 10:46:23 PM INTERPRETING MD: TANIA
--- NOTE | ~2016-07-27 | OR ---
Unit #: [id number] #: [id number] Patient: DOROTHY HERNANDEZ [id number] [facility]. [place], [place] [address] [id number] MR#: [id number] NAME: DOROTHY HERNANDEZ. ROOM: 461 Date of Procedure: 07/27/2016 Admission Date: 07/27/2016 Surgeon: Hortencia Alvarez M.D. : 1945 Attending Physician: Hortencia Alvarez M.D. Primary Care Physician: Selvin Sarabia Jr., M.D. OPERATIVE REPORT REGIONAL CLINICAL RESEARCH ASSOCIATE Chandrakant Gunn. PREOPERATIVE DIAGNOSIS End-stage renal disease, on dialysis. POSTOPERATIVE DIAGNOSIS End-stage renal disease, on dialysis. PROCEDURE PERFORMED Creation of a right brachiobasilic arteriovenous fistula with vein transposition. ANESTHESIA General. COMPLICATIONS None. ESTIMATED BLOOD LOSS 25 mL. INDICATIONS FOR PROCEDURE The patient is a 70-year-old gentleman, currently with a tunneled dialysis catheter using for dialysis. He was identified on vein mapping to have an adequate right and left basilic veins for creation of fistula, however, for previous use of the right subclavian vein for access, we have recommended a right brachial basilic fistula. He and his family were told of the planned procedure including the associated risks and benefits, and they wished to proceed. DESCRIPTION OF PROCEDURE The patient was taken to the operating room and placed on the operating room table in supine position. Following initially regional anesthesia and then converting to a general anesthesia when the patient had pain in the arm with testing, the right arm was then prepped and draped in normal standard manner. Using ultrasound, both the cephalic and basilic veins of the right upper extremity were evaluated and the basilic vein was adequate for creation of a fistula, although the cephalic vein was not. The basilic vein was mapped on the arm. An incision was created at the antecubital fossa longitudinally and taken down through subcutaneous tissues with cautery. The basilic vein was encountered first and was able Unit #: [id number] #: [id number] Patient: DOROTHY HERNANDEZ to be dissected free for the entire length of the created incision. Continued medial dissection was performed toward the brachial artery pulsation. The brachial artery was then identified and dissected free circumferentially proximally and distally. The artery appeared to be 4 to 5 mm in diameter. Continuation of dissection and mobilization of the basilic vein was then performed. The incision that had been created was extended in a continuous fashion to the axilla along the pre-mapped area. Dissection subcutaneously with cautery as well as Metzenbaum scissors was used to completely circumferentially mobilized the basilic vein. Side branches that were encountered were doubly ligated and transected. Distally, the incision was extended just into the proximal forearm and the basilic vein at that location was then fully mobilized. The vein did trifurcate at the level of the elbow and the most adequate branch was used for the distal most aspect of the vein harvest. With the vein fully mobilized, it was clamped with a right angle clamp distally and then transected. The stump was tied with a 3-0 silk tie. The vein was distended with heparinized saline and was excellent for creation of a fistula. It was marked with a marking pen. The [place] metal tunneler was then passed from the antecubital aspect of the incision to the axillary aspect. The vein was then tunneled in a subcutaneous fashion. The vein was tested and noted to be easily flushed and easily distensible confirming no kinking or twisting of the vein. The patient was then given heparin 100 units/kg and allowed to circulate for 3 minutes. The artery was then clamped proximally and distally with bulldog clamps and a longitudinal arteriotomy was created and extended with Rowley scissors. The vein was cut to length and beveled and anastomosed to the brachial artery with a running 6-0 Prolene suture. Upon completion, all clamps were removed and flow was restored. Easily palpable thrill was noted in the fistula and a palpable radial pulse was noted at the wrist. This was accepted. The patient was given 35 mg of protamine intravenously slowly. The subcutaneous tissues were evaluated and small oozing was noted and controlled with cautery. A 15-Italian channel drain was inserted via separate stab incision in the forearm with the drain being placed in the operative field. It was secured to the forearm with a 2-0 silk suture. The incision was then closed in 3 layers, a deep running 2-0 Vicryl suture, subcutaneous running 3-0 Vicryl suture, and 4-0 Monocryl suture for skin. The incision was washed, dressing applied, and the procedure was terminated. The patient tolerated the procedure well and was taken to the recovery room in stable condition. All needle, sponge, and instrument counts were correct at the end of the case. Dictated by... Radha Lyons/jimbo TD: 07/28/2016 07:37 JOB #: [id number] Unit #: [id number] #: [id number] Patient: DOROTHY HERNANDEZ OPERATIVE REPORT Page 1 of 1 X Hortencia Alvarez MD X PROCEDURE OPERATIVE NOTE
[~2016-07-27 07:54] MED LIST changes: -AMIODARONE PO; -ASPIRIN81 M2 PO; -BUMETANIDE2 M1 PO; -BUMEX2 MG PO; -CARDURA4 M1 PO; -CLOPIDOGREL75 MG PO; -DOCUSATE SODIU100 MG PO; -HYDROCODON-ACE1 EAC7 PO; -ISORDIL PO; -NITROGLYCERIN0.4 MG SL; -TOPROL XL PO; -ZESTRIL2.5 M1 PO; -ZYLOPRIM100 MG PO
[2016-07-27 08:53] LABS: HEMATOCRIT 28.9 % (38.0-50.0); HEMOGLOBIN 9.5 gm/dL (13.0-16.0); MEAN CELL VOLUME 86.7 FL (83-96); MEAN CORPUSCULAR HEMOGLOBIN 28.4 PG (28-34); MEAN CORPUSCULAR HGB CONC 32.7 g/dL (30-36); MEAN PLATELET VOLUME 7.8 FL (6.5-11.5); RED BLOOD COUNT 3.33 X10e (3.90-5.60); RED CELL DISTRIBUTION WIDTH 16.6 % (11.0-15.5); WHITE BLOOD COUNT 6.8 X10e3 (4.0-10.5)
[2016-07-27 09:26] LABS: BUN/CREATININE RATIO 12.27; CALCIUM SERUM 8.3 mg/dL (8.4-10.2); CREATININE SERUM 2.2 mg/dL (0.6-1.4); GLOM FILT RATE Estimated 29.1 mL/min (>60); POTASSIUM 3.6 mmol/L (3.5-5.1)
[2016-07-27] MEDS ORDERED: TOPROL XL PO (11:24)
[2016-07-27] MEDS ORDERED: CARDURA4 M1 PO (11:26)
[2016-07-27] MEDS ORDERED: ASPIRIN81 M2 PO (11:26)
[2016-07-27] MEDS ORDERED: ZETIA PO (17:25)
[2016-07-27] MEDS ORDERED: LIPITOR40 MG PO (17:25)
[2016-07-27] MEDS ORDERED: DOCUSATE SODIU100 MG PO (17:26)
[2016-07-27] MEDS ORDERED: GLUCOTROL PO (17:30)
[2016-07-27] MEDS ORDERED: NITROGLYCERIN0.4 MG SL (17:31)
[2016-07-27] MEDS ORDERED: ISORDIL PO (17:31)
[2016-07-27] MEDS ORDERED: ZYLOPRIM100 MG PO (17:32)
[2016-07-27] MEDS ORDERED: AMIODARONE PO (18:02)
[2016-07-27] MEDS ORDERED: BUMEX2 MG PO (18:04)
[2016-07-27] MEDS ORDERED: ZESTRIL2.5 M1 PO (18:06)
[2016-07-27] MEDS ORDERED: CLOPIDOGREL75 MG PO (18:07)
[2016-07-28 03:32] LABS: BASOPHIL% 0.8 % (0-2.5); EOSINOPHIL# 0.1 X10e3 (0-0.7); HEMATOCRIT 26.3 % (38.0-50.0); HEMOGLOBIN 8.5 gm/dL (13.0-16.0); LYMPHOCYTE# 1.1 X10e3 (1.0-3.5); LYMPHOCYTE% 18.9 % (17.0-45.0); MEAN CELL VOLUME 86.4 FL (83-96); MEAN CORPUSCULAR HEMOGLOBIN 28.1 PG (28-34); MEAN CORPUSCULAR HGB CONC 32.5 g/dL (30-36); MEAN PLATELET VOLUME 7.9 FL (6.5-11.5); MONOCYTE# 0.5 X10e3 (0-1.0); MONOCYTE% 8.3 % (3.0-12.0); NEUTROPHIL# 4.1 X10e3 (1.5-7.1); PLATELET COUNT 184 X10e3 (140-420); RED BLOOD COUNT 3.04 X10e (3.90-5.60); RED CELL DISTRIBUTION WIDTH 16.6 % (11.0-15.5); WHITE BLOOD COUNT 5.8 X10e3 (4.0-10.5)
[2016-07-28 03:34] LABS: DIFF IND NO
[2016-07-28 03:51] LABS: BUN/CREATININE RATIO 13.75; CREATININE SERUM 2.4 mg/dL (0.6-1.4); GLOM FILT RATE Estimated 26.2 mL/min (>60)
[2016-07-28] MEDS ORDERED: HYDROCODON-ACE1 EAC7 PO (14:06)
[2016-11-06] MEDS ORDERED: BUMETANIDE2 M1 PO (14:51)
== END 2016-07-28 15:20 | disposition home or self-care (01) | DRG 674 ==
LOC: CSUR 07:54 → CPACUOF 11:35 → CSUR 12:16 → CPACUOF 14:00 → C4C 14:00
PROVIDERS: Internal Medicine Nephrology; Surgery Vascular Surgery
PROC: 05BB0ZZ Excision of Right Basilic Vein, Open Approach (ICD-10-PCS; 2016-07-27)
PROC: 03170JD Bypass Right Brachial Artery to Upper Arm Vein with Synthetic Substitute, Open Approach (ICD-10-PCS; principal; 2016-07-27 10:00)
DX: E11.22 Type 2 diabetes mellitus with diabetic chronic kidney disease (principal); I50.32 Chronic diastolic (congestive) heart failure; N18.6 End stage renal disease; D64.9 Anemia, unspecified; I25.10 Atherosclerotic heart disease of native coronary artery without angina pectoris; Z79.82 Long term (current) use of aspirin; Z98.42 Cataract extraction status, left eye; Z98.41 Cataract extraction status, right eye; Z95.5 Presence of coronary angioplasty implant and graft; Z99.2 Dependence on renal dialysis; E11.42 Type 2 diabetes mellitus with diabetic polyneuropathy; E11.319 Type 2 diabetes mellitus with unspecified diabetic retinopathy without macular edema; Z87.891 Personal history of nicotine dependence; E78.5 Hyperlipidemia, unspecified
CPT/HCPCS: 80048; 82947; 85025; 85027; 93005; J0690; J1642; J1644; J2250; J2270; J2370; J2405; J2720; J2795; J3010; Q4081

== ENCOUNTER → 2016-10-13 | Outpatient (CLI) | payer MEDICARE ==
[~2016-10-13] MED LIST changes: +AMIODARONE PO; +ASPIRIN81 M2 PO; +BUMETANIDE2 M1 PO; +BUMEX2 MG PO; +CARDURA4 M1 PO; +CLOPIDOGREL75 MG PO; +DOCUSATE SODIU100 MG PO; +HYDROCODON-ACE1 EAC7 PO; +ISORDIL PO; +NITROGLYCERIN0.4 MG SL; +TOPROL XL PO; +ZESTRIL2.5 M1 PO; +ZYLOPRIM100 MG PO
--- NOTE | ~2016-10-13 | US37 ---
[facility] A Service of [facility] RADIOLOGY TEXT RESULTS PATIENT: DOROTHY HERNANDEZ LOCATION: CNIV : 43 UNIT #: [id number] AGE: [address]: ARELI FLORES APRN SEX: M ORDER DR: [id number] [facility] [address] [place], [place] [address] [id number] O MR#: [id number] Acc #: [id number] NAME: DOROTHY HERNANDEZ : 1945 SEX: M STUDY DATE/TIME: 10/13/2016 8:23 UNIT: CNIV ROOM: STUDY DESCRIPTION: US Carotid W/Doppler Bilateral Attending Physician: Areli Flores Aprn Referring Physician: Areli Flores Aprn Ordering Physician: Areli Flores Aprn Primary Care Physician: Selvin Sarabia Jr., M.D. MEDICAL IMAGING REPORT This report is preliminary unless electronic signature is present EXAM Bilateral carotid Doppler. HISTORY Carotid stenosis. FINDINGS The right common internal and external carotid arteries are patent, and there is mild to moderate plaque noted diffusely throughout that is heterogeneous in nature with calcifications. Velocity at the common carotid artery is 70 cm per second. Peak systolic velocity of the right proximal internal carotid artery is 143 cm/sec with an end diastolic velocity of 17 cm/sec for an ICA/CCA ratio of 2.0. External carotid artery had a velocity of 224 cm/sec. The vertebral artery is visualized with antegrade flow. The left common internal and external carotid arteries are patent. There is mild diffuse, heterogeneous plaque throughout. Velocity of the common carotid artery is 70 cm/sec. Peak systolic velocity of the left proximal and internal carotid artery is 83 cm per second with an end diastolic velocity of 15 cm/sec for an ICA to CCA ratio of 1.2. External carotid artery had a velocity of 145 cm/sec. The vertebral artery is visualized with antegrade flow. IMPRESSION 1. 50% - 69% stenosis of the right internal artery and less than 50% stenosis of the left internal carotid artery. 2. Elevated velocity consistent with stenosis of the right external carotid artery, but no velocity elevation consistent with no apparent stenosis of the left external carotid artery. 3. Antegrade flow of the vertebral arteries. [facility]. [facility] A Service of [facility] RADIOLOGY TEXT RESULTS PATIENT: DOROTHY HERNANDEZ LOCATION: [facility] : 43 UNIT #: [id number] AGE: [address]: ARELI FLORES APRN SEX: M ORDER DR: Dictated by... Hortencia Alvarez M.D. THIS IS AN ELECTRONICALLY VERIFIED REPORT Hortencia Alvarez M.D. at 10/14/2016 4:08 PM Bhupendra TD: 10/13/2016 20:22 JOB #: [id number] MEDICAL IMAGING REPORT Page 1 of 1 COPY
== END | disposition home or self-care (01) ==
LOC: CNIV 08:04
DX: I65.23 Occlusion and stenosis of bilateral carotid arteries (principal)
CPT/HCPCS: 93880